=== PATIENT | female | born 1980 | race Caucasian/White ===

== ENCOUNTER 2018-06-21 08:58 | Inpatient (IN) | payer BC ==
[2018-06-21] MEDS ORDERED: Lactated Ringers 1,000 ML IV SCH (09:30)
[2018-06-21] MEDS ORDERED: Sodium Chloride 0.9% 10 ML Syringe FLUSH PRN (09:30)
[2018-06-21] MEDS ORDERED: Carboprost Tromethamine 250 MCG/1 ML Amp IM PRN (09:30)
[2018-06-21] MEDS ORDERED: Misoprostol 200 MCG Tab PO PRN (09:30)
[2018-06-21] MEDS ORDERED: Lidocaine 1% 50 ML MDV INJECT PRN (09:30)
[2018-06-21] MEDS ORDERED: Nalbuphine 10 MG/1 ML Vial IVPUSH PRN (09:30)
[2018-06-21] MEDS ORDERED: Methylergonovine 0.2 MG/1 ML Amp IM PRN (09:30)
[2018-06-21] MEDS ORDERED: Tranexamic Acid 1,000 MG in Sodium Chloride 0.9% 100 ML IV PRN (09:30)
[2018-06-21] MEDS ORDERED: Oxytocin/0.9 % Sodium Chloride 30 UNIT/500 ML BAG IV SCH ×2 (09:30→09:45)
[2018-06-21] MEDS ORDERED: Sodium Chloride 0.9% 2.5 ML Syringe FLUSH PRN (09:30)
[2018-06-21] MEDS ORDERED: Water For Irrigation,Sterile 1,000 ML Container IRR PRN (09:30)
[2018-06-21] MEDS ORDERED: Sodium Chloride 0.9% 10 ML SDV IV PRN (09:30)
[2018-06-21] MEDS ORDERED: Butorphanol 1 MG/ML SDV IVPUSH PRN (09:30)
[2018-06-21] MEDS ORDERED: Terbutaline 1 MG/ML SDV SUBCUT PRN (09:33)
[2018-06-21] MEDS ORDERED: Misoprostol 25 MCG (1/4 of 100 MCG) Tab VAG PRN ×2 (09:33)
[2018-06-21] MEDS ORDERED: Morphine 10 MG/ML Syringe IVPUSH ONE (17:01)
[2018-06-21] MEDS ORDERED: Promethazine 25 MG/ML SDV IM ONE (17:02)
[2018-06-21] MEDS ORDERED: fentaNYL 100 MCG/2 ML SDV ONE (19:55)
[2018-06-21] MEDS ORDERED: Ropivacaine HCl/PF 100 ML ONE (19:55)
[2018-06-21] MEDS ORDERED: Ropivacaine 0.2% 2 MG/ML 20 ML SDV ONE (19:55)
[2018-06-21] MEDS ORDERED: Lidocaine HCl/EPINEPHrine 5 ML IJ ONE (19:56)
--- NOTE | 2018-06-21 20:47 | PCM.PREANE ---
Preanesthetic Assessment - Anesthesia/Transfusion/Family Hx Anesthesia History: Prior Anesthesia Without Reaction Family History of Anesthesia Reaction: No Transfusion History: No Prior Transfusion(s) Intubation History: Unknown - Review of Systems General: No Symptoms Pulmonary: No Symptoms Cardiovascular: No Symptoms Gastrointestinal: No Symptoms Neurological: No Symptoms Other: Reports: None - Physical Assessment NPO Status Date: 06/21/18 NPO Status Time: 20:46 (Clear Liquids) Pulse: 98 O2 Sat by Pulse Oximetry: 99 Respiratory Rate: 24 Blood Pressure: 124/78 Height: 1.63 m Weight: 87.997 kg ASA Class: 2 Mental Status: Alert & Oriented x3 Airway Class: Mallampati = 2 Dentition: Reports: Normal Dentition ROM/Head Extension: Full Lungs: Clear to Auscultation Cardiovascular: Regular Rate - Lab Values: Laboratory Last Values WBC 12.97 K/uL (4.0-11.0) H 06/21/18 10:01 RBC 4.40 M/uL (4.30-5.90) 06/21/18 10:01 Hgb 13.1 g/dL (12.0-16.0) 06/21/18 10:01 Hct 38.5 % (36.0-46.0) 06/21/18 10:01 MCV 87.5 fL (80.0-98.0) 06/21/18 10:01 MCH 29.8 pg (27.0-32.0) 06/21/18 10:01 MCHC 34.0 g/dL (31.0-37.0) 06/21/18 10:01 RDW Std Deviation 43.3 fl (28.0-62.0) 06/21/18 10:01 RDW Coeff of Neto 14 % (11.0-15.0) 06/21/18 10:01 Plt Count 259 K/uL (150-400) 06/21/18 10:01 MPV 10.80 fL (7.40-12.00) 06/21/18 10:01 Nucleated RBC % 0.0 /100WBC 06/21/18 10:01 Nucleated RBCs # 0 K/uL 06/21/18 10:01 Blood Type O POSITIVE 06/21/18 10:01 Antibody Screen NEGATIVE 06/21/18 10:01 - Allergies Allergies/Adverse Reactions: Allergies Allergy/AdvReac Type Severity Reaction Status Date / Time Contrast dye Allergy Other Uncoded 04/02/18 14:09 - Blood Blood Available: No - Anesthesia Plan Pre-Op Medication Ordered: None - Acknowledgements Anesthesia Type Planned: Epidural Pt an Appropriate Candidate for the Planned Anesthesia: No Alternatives and Risks of Anesthesia Discussed w Pt/Guardian: No Pt/Guardian Understands and Agrees with Anesthesia Plan: No PreAnesthesia Questionnaire HEENT History: Reports: None Cardiovascular History: Reports: None Respiratory History: Reports: None Gastrointestinal History: Reports: Other (See Below) Other Gastrointestinal History: heartburn with Genitourinary History: Reports: None 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: Reports: , Other (See Below) Other OB/BYN History: bacterial vaginosis Musculoskeletal History: Reports: None Neurological History: Reports: Other (See Below) Other Neuro History: vaso-vagal response Psychiatric History: Reports: None Endocrine/Metabolic History: Reports: None Hematologic History: Reports: None Immunologic History: Reports: None Oncologic (Cancer) History: Reports: None Dermatologic History: Reports: None - Infectious Disease History Infectious Disease History: Reports: Chicken Pox, Human Papilloma Virus (HPV) - Past Surgical History Other HEENT Surgeries/Procedures: laser surgery to reduce turbinates GI Surgical History: Reports: None Female Surgical History: Reports: Other (See Below) Other Female Surgeries/Procedures: cervical cryrotherapy for abnormal cells - SUBSTANCE USE Smoking Status *Q: Never Smoker Second Hand Smoke Exposure: No Recreational Drug Use History: No - HOME MEDS Home Medications: Home Meds Cholecalciferol (Vitamin D3) [Vitamin D] 1 tab PO DAILY 04/02/18 [History] Magnesium 1 tab PO DAILY 04/02/18 [History] PNV #116/Iron Fumarate/FA/DHA [Expecta Combo Pack] 1 tab PO DAILY 04/02 [History] Zinc Gluconate [Zinc] 1 tab PO DAILY 04/02/18 [History] Acetaminophen [Tylenol Extra Strength] 1,000 mg PO ASDIRECTED PRN 06/21/18 [ History] Esomeprazole Magnesium [Nexium 24Hr] 1 tab PO DAILY 06/21/18 [History] - CURRENT (IN HOUSE) MEDS Current Meds: Current Medications Butorphanol Tartrate (Stadol) 1 mg IVPUSH Q1H PRN PRN Reason: Pain Last Admin: 06/21/18 16:09 Dose: 1 mg Carboprost Tromethamine (Hemabate Ds) 250 mcg IM ASDIRECTED PRN PRN Reason: Post Hemorrhage Lactated Ringer's (Ringers, Lactated) 1,000 mls @ 150 mls/hr IV ASDIRECTED ROB Last Admin: 06/21/18 15:35 Dose: 150 mls/hr Oxytocin/Sodium Chloride (Oxytocin 30 Unit/500 Ml-Ns) 30 unit in 500 mls @ 500 mls/hr IV TITRATE ROB Tranexamic Acid 1,000 mg/ (Sodium Chloride) 110 mls @ 660 mls/hr IV ONETIME PRN PRN Reason: Bleeding Oxytocin/Sodium Chloride (Oxytocin 30 Unit/500 Ml-Ns) 30 unit in 500 mls @ 2 mls/hr IV TITRATE [facility]; Protocol Lidocaine HCl (Xylocaine 1%) 50 ml INJECT ONETIME PRN PRN Reason: Laceration repair Methylergonovine Maleate (Methergine) 0.2 mg IM ASDIRECTED PRN PRN Reason: Post Hemorrhage Misoprostol (Cytotec) 200 mcg PO ONETIME PRN PRN Reason: Post Hemorrhage Misoprostol (Cytotec) 25 mcg VAG ONETIME PRN PRN Reason: Cervical Ripening Last Admin: 06/21/18 10:25 Dose: 25 mcg Misoprostol (Cytotec) 25 mcg VAG Q6H PRN PRN Reason: Cervical Ripening Nalbuphine HCl (Nubain) 10 mg IVPUSH Q1H PRN PRN Reason: Pain (severe 7-10) Sodium Chloride (Saline Flush) 10 ml FLUSH ASDIRECTED PRN PRN Reason: Keep Vein Open Sodium Chloride (Saline Flush) 2.5 ml FLUSH ASDIRECTED PRN PRN Reason: Keep Vein Open Sodium Chloride (Normal Saline) 10 ml IV ASDIRECTED PRN PRN Reason: IV Use Sterile Water (Sterile Water For Irrigation) 1,000 ml IRR ASDIRECTED PRN PRN Reason: delivery Terbutaline Sulfate (Brethine) 0.25 mg SUBCUT ASDIRECTED PRN PRN Reason: Tacysystole Discontinued Medications Fentanyl (Sublimaze) Confirm Administered Dose 100 mcg .ROUTE .STK-MED ONE Stop: 06/21/18 19:56 Ropivacaine (Naropin 0.2%) Confirm Administered Dose 100 mls @ as directed .ROUTE .STK-MED ONE Stop: 06/21/18 19:56 Lidocaine/Epinephrine (Lidocaine 1.5%-Epi 1:200,000) Confirm Administered Dose 5 ml IJ .STK-MED ONE Stop: 06/21/18 19:57 Morphine Sulfate (Morphine) 6 mg IVPUSH ONETIME ONE Stop: 06/21/18 17:02 Last Admin: 06/21/18 17:39 Dose: 6 mg Promethazine HCl (Phenergan) 25 mg IM ONETIME ONE Stop: 06/21/18 17:03 Last Admin: 06/21/18 17:45 Dose: 25 mg Ropivacaine (Naropin 0.2%) Confirm Administered Dose 20 ml .ROUTE .STK-MED ONE Stop: 06/21/18 19:56
--- NOTE | 2018-06-21 21:13 | PCM.PRNOTE ---
- Free Text/Narrative Note: Requested for Labor Epidural for analgesia. Term . Dilated ~5cm , contractions q2-3 minutes. Pain level "10". Chart reviewed, discussed risks, benefits, complications and expectations. Accepts, ? answered, wishes to proceed. 2001: Prepped, draped, skin local> 5ml 1% lidocaine at L4-L5 space. 2005: Epidural Space ID'd via YUNG with 1.5ml saline and 1ml air. 3ml saline bolus to confirm. 2006: Catheter to 8cm without issues. Negative aspiration. 2009: Test dose with 5ml Lidocaine 1.5% with 1:200K epi. Test negative. BP/HR/ FHT stable. No central or MAIL LIST PROCESSOR signs. Occlusive Drsg applied. Catheter secured. Bolus given slowly. Naropin 0.2% 8ml + 100mcg Fentanyl. Pain down to 5 from 2026: Epidural gtt started @ 8ml/hr, 4ml bolus q10 x4/hr. 20:30 Doing well. Pain level <3. No problems noted.
--- NOTE | 2018-06-21 21:16 | PCM.SN ---
- Free Text/Narrative Note: 21:10 Doing well. Stable. Pain well controlled. Complete.
--- NOTE | 2018-06-21 22:54 | PCM.DEL ---
L & D Note - General Info Date of Service: 06/21/18 Mother's Due Date: 06/13/18 - Delivery Note Cervical Ripening Method: Misoprostil Delivery Outcome: Livebirth Infant Delivery Method: Spontaneous Vaginal Delivery-Single Presentation: Right Occiput Anterior (ALINE) Nuchal Cord: None Anesthesia Type: Epidural Anesthetic: Lidocaine (Xylocaine) 1% Plain Amniotic Fluid Description: Clear Episiotomy Type: None Laceration: 1st Degree Suture type: Other (monocryl) Suture size: 3-0 Placenta: Intact Cord: 3 Vessels Estimated Blood Loss: 200 Resuscitation Needed: Yes : Suctioned, Bulb Syringe, Stimulated, Warmed Score 1 min: 8 Score 5 min: 8 Delivery Comments (Free Text/Narrative):: Live male delivered at 2157 weight 3040g , 8/8 - General Info Date of Service: 06/21/18 - Patient Data Vitals - Most Recent: Last Vital Signs Temp Pulse 98 06/21/18 20:47 Resp 24 H 06/21/18 20:47 BP 124/78 06/21/18 20:47 Pulse Ox 99 06/21/18 20:47 Weight - Most Recent: 87.997 kg Lab Results Last 24 Hours: Laboratory Results - last 24 hr 06/21/18 06/21/18 Range/Units 10:01 10:01 WBC 12.97 H (4.0-11.0) K/uL RBC 4.40 (4.30-5.90) M/uL Hgb 13.1 (12.0-16.0) g/dL Hct 38.5 (36.0-46.0) % MCV 87.5 (80.0-98.0) fL MCH 29.8 (27.0-32.0) pg MCHC 34.0 (31.0-37.0) g/dL RDW Std Deviation 43.3 (28.0-62.0) fl RDW Coeff of Neto 14 (11.0-15.0) % Plt Count 259 (150-400) K/uL MPV 10.80 (7.40-12.00) fL Nucleated RBC % 0.0 /100WBC Nucleated RBCs # 0 K/uL Blood Type O POSITIVE Antibody Screen NEGATIVE Med Orders - Current: Current Medications Butorphanol Tartrate (Stadol) 1 mg IVPUSH Q1H PRN PRN Reason: Pain Last Admin: 06/21/18 16:09 Dose: 1 mg Carboprost Tromethamine (Hemabate Ds) 250 mcg IM ASDIRECTED PRN PRN Reason: Post Hemorrhage Lactated Ringer's (Ringers, Lactated) 1,000 mls @ 150 mls/hr IV ASDIRECTED ROB Last Admin: 06/21/18 15:35 Dose: 150 mls/hr Oxytocin/Sodium Chloride (Oxytocin 30 Unit/500 Ml-Ns) 30 unit in 500 mls @ 500 mls/hr IV TITRATE ROB Tranexamic Acid 1,000 mg/ (Sodium Chloride) 110 mls @ 660 mls/hr IV ONETIME PRN PRN Reason: Bleeding Oxytocin/Sodium Chloride (Oxytocin 30 Unit/500 Ml-Ns) 30 unit in 500 mls @ 2 mls/hr IV TITRATE ROB; Protocol Lidocaine HCl (Xylocaine 1%) 50 ml INJECT ONETIME PRN PRN Reason: Laceration repair Methylergonovine Maleate (Methergine) 0.2 mg IM ASDIRECTED PRN PRN Reason: Post Hemorrhage Misoprostol (Cytotec) 200 mcg PO ONETIME PRN PRN Reason: Post Hemorrhage Misoprostol (Cytotec) 25 mcg VAG ONETIME PRN PRN Reason: Cervical Ripening Last Admin: 06/21/18 10:25 Dose: 25 mcg Misoprostol (Cytotec) 25 mcg VAG Q6H PRN PRN Reason: Cervical Ripening Nalbuphine HCl (Nubain) 10 mg IVPUSH Q1H PRN PRN Reason: Pain (severe 7-10) Sodium Chloride (Saline Flush) 10 ml FLUSH ASDIRECTED PRN PRN Reason: Keep Vein Open Sodium Chloride (Saline Flush) 2.5 ml FLUSH ASDIRECTED PRN PRN Reason: Keep Vein Open Sodium Chloride (Normal Saline) 10 ml IV ASDIRECTED PRN PRN Reason: IV Use Sterile Water (Sterile Water For Irrigation) 1,000 ml IRR ASDIRECTED PRN PRN Reason: delivery Terbutaline Sulfate (Brethine) 0.25 mg SUBCUT ASDIRECTED PRN PRN Reason: Tacysystole Discontinued Medications Fentanyl (Sublimaze) Confirm Administered Dose 100 mcg .ROUTE .STK-MED ONE Stop: 06/21/18 19:56 Ropivacaine (Naropin 0.2%) Confirm Administered Dose 100 mls @ as directed .ROUTE .STK-MED ONE Stop: 06/21/18 19:56 Lidocaine/Epinephrine (Lidocaine 1.5%-Epi 1:200,000) Confirm Administered Dose 5 ml IJ .STK-MED ONE Stop: 06/21/18 19:57 Morphine Sulfate (Morphine) 6 mg IVPUSH ONETIME ONE Stop: 06/21/18 17:02 Last Admin: 06/21/18 17:39 Dose: 6 mg Promethazine HCl (Phenergan) 25 mg IM ONETIME ONE Stop: 06/21/18 17:03 Last Admin: 06/21/18 17:45 Dose: 25 mg Ropivacaine (Naropin 0.2%) Confirm Administered Dose 20 ml .ROUTE .STK-MED ONE Stop: 06/21/18 19:56 - Problem List & Annotations (1) Vaginal delivery SNOMED Code(s): 556323224 Code(s): O80 - ENCOUNTER FOR FULL-TERM UNCOMPLICATED DELIVERY Status: Acute Current Visit: Yes - Problem List Review Problem List Initiated/Reviewed/Updated: Yes
[2018-06-21] MEDS ORDERED: Lanolin 100% Cream 7 GM Tube TOP PRN (22:55)
[2018-06-21] MEDS ORDERED: Bisacodyl 10 MG Supp RECTAL PRN (22:55)
[2018-06-21] MEDS ORDERED: oxyCODONE 5 MG Tab PO PRN (22:55)
[2018-06-21] MEDS ORDERED: Witch Hazel Medicated Pads 40/Jar TOP PRN (22:55)
[2018-06-21] MEDS ORDERED: Benzocaine/Menthol 20%-0.5% Spray 78 GM Cannister TOP PRN (22:55)
[2018-06-21] MEDS ORDERED: Acetaminophen 500 MG Tab PO PRN (22:55)
[2018-06-21] MEDS ORDERED: Ibuprofen 400 MG Tab PO PRN (22:55)
--- NOTE | 2018-06-22 04:33 | PCM48HPAN ---
Post Anesthesia Note - EVALUATION WITHIN 48HRS OF ANESTHETIC Vital Signs in Normal Range: Yes Patient Participated in Evaluation: Yes Respiratory Function Stable: Yes Airway Patent: Yes Cardiovascular Function Stable: Yes Hydration Status Stable: Yes Pain Control Satisfactory: Yes Nausea and Vomiting Control Satisfactory: Yes Mental Status Recovered: Yes Pulse Rate: 98 SaO2: 98 Resp Rate: 24 Blood Pressure: 124/78 - COMMENTS/OBSERVATIONS Free Text/Narrative:: Delivered without incident. Doing well. no problems noted.
[2018-06-22] MEDS: Ibuprofen 800 MG Tab PO PRN ×2 (08:05→14:20)
[2018-06-22] MEDS: Docusate Sodium 100 MG Cap PO PRN ×2 (08:05→20:41)
[2018-06-22] MEDS: Acetaminophen 500 MG Tab PO PRN (11:35)
--- NOTE | 2018-06-22 12:11 | PCM.PNPP ---
- General Info Date of Service: 06/22/18 Subjective Update: 37 yo P1 s/p PPD 1 , stable Functional Status: Reports: Pain Controlled, Tolerating Diet, Ambulating, Urinating - Review of Systems General: Reports: No Symptoms HEENT: Reports: No Symptoms Pulmonary: Reports: No Symptoms Cardiovascular: Reports: No Symptoms Gastrointestinal: Reports: No Symptoms Genitourinary: Reports: No Symptoms Musculoskeletal: Reports: No Symptoms Skin: Reports: No Symptoms Neurological: Reports: No Symptoms Psychiatric: Reports: No Symptoms - General Info Date of Service: 06/22/18 - Patient Data Vital Signs - Most Recent: Last Vital Signs Temp 36.7 C 06/22/18 08:00 Pulse 74 06/22/18 08:00 Resp 20 06/22/18 08:00 BP 116/59 L 06/22/18 08:00 Pulse Ox 97 06/22/18 08:00 Weight - Most Recent: 87.997 kg Lab Results - Last 24 Hours: Laboratory Results - last 24 hr 06/22/18 Range/Units 07:08 Hgb 11.8 L (12.0-16.0) g/dL Hct 34.5 L (36.0-46.0) % Med Orders - Current: Current Medications Acetaminophen (Tylenol Extra Strength) 500 mg PO Q4H PRN PRN Reason: Pain Acetaminophen (Tylenol Extra Strength) 1,000 mg PO Q4H PRN PRN Reason: Pain Last Admin: 06/22/18 11:35 Dose: 1,000 mg Benzocaine/Menthol (Dermoplast Pain Relief 20%-0.5% [place]) 78 gm TOP ASDIRECTED PRN PRN Reason: Perineal Comfort Measure Last Admin: 06/22/18 08:08 Dose: 1 canister Bisacodyl (Dulcolax) 10 mg RECTAL ONETIME PRN PRN Reason: Constipation Carboprost Tromethamine (Hemabate Ds) 250 mcg IM ASDIRECTED PRN PRN Reason: Post Hemorrhage Docusate Sodium (Colace) 100 mg PO BID PRN PRN Reason: Constipation Last Admin: 06/22/18 08:05 Dose: 100 mg Emollient Ointment (Lansinoh Hpa) 0 gm TOP ASDIRECTED PRN PRN Reason: Sore Nipples Lactated Ringer's (Ringers, Lactated) 1,000 mls @ 150 mls/hr IV ASDIRECTED ROB Last Admin: 06/21/18 15:35 Dose: 150 mls/hr Oxytocin/Sodium Chloride (Oxytocin 30 Unit/500 Ml-Ns) 30 unit in 500 mls @ 500 mls/hr IV TITRATE [facility] Tranexamic Acid 1,000 mg/ (Sodium Chloride) 110 mls @ 660 mls/hr IV ONETIME PRN PRN Reason: Bleeding Oxytocin/Sodium Chloride (Oxytocin 30 Unit/500 Ml-Ns) 30 unit in 500 mls @ 2 mls/hr IV TITRATE [facility]; Protocol Ibuprofen (Motrin) 400 mg PO Q4H PRN PRN Reason: Pain Ibuprofen (Motrin) 800 mg PO Q6H PRN PRN Reason: Pain Last Admin: 06/22/18 08:05 Dose: 800 mg Lidocaine HCl (Xylocaine 1%) 50 ml INJECT ONETIME PRN PRN Reason: Laceration repair Methylergonovine Maleate (Methergine) 0.2 mg IM ASDIRECTED PRN PRN Reason: Post Hemorrhage Misoprostol (Cytotec) 200 mcg PO ONETIME PRN PRN Reason: Post Hemorrhage Misoprostol (Cytotec) 25 mcg VAG Q6H PRN PRN Reason: Cervical Ripening Oxycodone HCl (Oxycodone) 5 mg PO Q2H PRN PRN Reason: Pain Sodium Chloride (Saline Flush) 10 ml FLUSH ASDIRECTED PRN PRN Reason: Keep Vein Open Sodium Chloride (Saline Flush) 2.5 ml FLUSH ASDIRECTED PRN PRN Reason: Keep Vein Open Sodium Chloride (Normal Saline) 10 ml IV ASDIRECTED PRN PRN Reason: IV Use Sterile Water (Sterile Water For Irrigation) 1,000 ml IRR ASDIRECTED PRN PRN Reason: delivery Terbutaline Sulfate (Brethine) 0.25 mg SUBCUT ASDIRECTED PRN PRN Reason: Tacysystole [place] (Tucks) 1 pad TOP ASDIRECTED PRN PRN Reason: comfort care Discontinued Medications Butorphanol Tartrate (Stadol) 1 mg IVPUSH Q1H PRN PRN Reason: Pain Last Admin: 06/21/18 16:09 Dose: 1 mg Fentanyl (Sublimaze) Confirm Administered Dose 100 mcg .ROUTE .STK-MED ONE Stop: 06/21/18 19:56 Ropivacaine (Naropin 0.2%) Confirm Administered Dose 100 mls @ as directed .ROUTE .STK-MED ONE Stop: 06/21/18 19:56 Lidocaine/Epinephrine (Lidocaine 1.5%-Epi 1:200,000) Confirm Administered Dose 5 ml IJ .STK-MED ONE Stop: 06/21/18 19:57 Misoprostol (Cytotec) 25 mcg VAG ONETIME PRN PRN Reason: Cervical Ripening Last Admin: 06/21/18 10:25 Dose: 25 mcg Morphine Sulfate (Morphine) 6 mg IVPUSH ONETIME ONE Stop: 06/21/18 17:02 Last Admin: 06/21/18 17:39 Dose: 6 mg Nalbuphine HCl (Nubain) 10 mg IVPUSH Q1H PRN PRN Reason: Pain (severe 7-10) Promethazine HCl (Phenergan) 25 mg IM ONETIME ONE Stop: 06/21/18 17:03 Last Admin: 06/21/18 17:45 Dose: 25 mg Ropivacaine (Naropin 0.2%) Confirm Administered Dose 20 ml .ROUTE .STK-MED ONE Stop: 06/21/18 19:56 - Infant Interaction Support Person: Significant Other - Recovery Exam Fundal Tone: Firm Fundal Level: At Umbilicus Fundal Placement: Midline Lochia Amount: Small Lochia Color: Rubra/Red Perineum Description: Intact, Minimal Bruising/Swelling Episiotomy/Laceration: None Bladder Status: Voiding Urinary Elimination: Voided - Exam General: Alert HEENT: Pupils Equal Neck: Supple Lungs: Clear to Auscultation Cardiovascular: Regular Rate, Regular Rhythm GI/Abdominal Exam: Normal Bowel Sounds Extremities: Normal Inspection Psy/Mental Status: Alert - Problem List & Annotations (1) Vaginal delivery SNOMED Code(s): 864482201 Code(s): O80 - ENCOUNTER FOR FULL-TERM UNCOMPLICATED DELIVERY Status: Acute Current Visit: Yes - Problem List Review Problem List Initiated/Reviewed/Updated: Yes - My Orders Last 24 Hours: My Active Orders 06/21/18 22:55 Patient Status [ADT] Routine May Shower [RC] ASDIRECTED Up ad Cassidy [RC] ASDIRECTED Acetaminophen [Tylenol Extra Strength] 1,000 mg PO Q4H PRN Acetaminophen [Tylenol Extra Strength] 500 mg PO Q4H PRN Benzocaine/Menthol [Dermoplast Pain Relief 20%-0.5% [place]] 78 gm TOP ASDIRECTED PRN Bisacodyl [Dulcolax] 10 mg RECTAL ONETIME PRN Docusate Sodium [Colace] 100 mg PO BID PRN Ibuprofen [Motrin] 400 mg PO Q4H PRN Ibuprofen [Motrin] 800 mg PO Q6H PRN Lanolin [Lansinoh HPA] See Dose Instructions TOP ASDIRECTED PRN [place] [Tucks] 1 pad TOP ASDIRECTED PRN oxyCODONE 5 mg PO Q2H PRN Assess Lochia [WOMSER] Per Unit Routine Assess Uterine Involution [WOMSER] Per Unit Routine Peripheral IV Discontinue [OM.PC] Routine Resuscitation Status Routine - Assessment Assessment:: 37 yo P2 s/p PPD 1 , stable , on oxygen via nasal cannula, she is pumping - Plan Plan:: Routine Discharge home tomorrow
--- NOTE | 2018-06-22 13:16 | OR ---
SURGEON: LUZ TONEY DATE OF PROCEDURE:06/22/2018 PREOPERATIVE DIAGNOSIS: This 37-year-old 1, para 0, at 41 weeks 0 days, admitted for induction of labor for borderline oligohydramnios and HEATHER was 6. POSTOPERATIVE DIAGNOSES: This 37-year-old 1, para 0, at 41 weeks 0 days, admitted for induction of labor for borderline oligohydramnios and HEATHER was 6. PROCEDURES: Normal spontaneous vaginal delivery and repair of first degree vaginal laceration. ESTIMATED BLOOD LOSS: 200. IV FLUID: Pitocin running. FINDINGS: A live male delivered at 2157 hours. score was 8 and 8. Weight is 3040 g. There was some suctioning of the baby afterwards. BRIEF HISTORY: She is G1, P0, 41 weeks 0 days came for postdates surveillance. She was found to have border line oligohydramnios. As a result, she was counseled for induction of labor. Induction of labor was started with Cytotec. The patient made change on her own after receiving about 2 doses of Cytotec and she changed from a closed cervix to 4 cm dilated, and she became fully dilated and she was encouraged to push. PROCEDURE: With good pushing effort, the patient delivered head in the ALINE position subsequently by the anterior and posterior shoulder and the body of the was delivered. The infant was placed on the maternal abdomen. Then delayed cord clamping was observed. The cord was clamped and cut, the placenta was then delivered via controlled cord traction. The perineum was inspected and noted to have a first degree laceration, which was repaired with 3-0 Monocryl interlocking in layers. All instrument and pad counts were correct x2. The patient tolerated the procedure and was left in Labor and Delivery suite in stable condition. ANIBAL / JAIMEE /[id number] RONALD
[2018-06-23] MEDS: Ibuprofen 800 MG Tab PO PRN (00:29)
[2018-06-23] MEDS: Acetaminophen 500 MG Tab PO PRN (06:08)
--- NOTE | 2018-06-23 07:22 | PCM.PNPP ---
- General Info Date of Service: 06/23/18 Subjective Update: 37 yo P1 s/p PPD 2 , stable Functional Status: Reports: Pain Controlled, Tolerating Diet, Ambulating, Urinating - Review of Systems General: Reports: No Symptoms HEENT: Reports: No Symptoms Pulmonary: Reports: No Symptoms Cardiovascular: Reports: No Symptoms Gastrointestinal: Reports: No Symptoms Genitourinary: Reports: No Symptoms Musculoskeletal: Reports: No Symptoms Skin: Reports: No Symptoms Neurological: Reports: No Symptoms Psychiatric: Reports: No Symptoms - General Info Date of Service: 06/23/18 - Patient Data Vital Signs - Most Recent: Last Vital Signs Temp 36.6 C 06/23/18 04:28 Pulse 66 06/23/18 04:28 Resp 17 06/23/18 04:28 BP 101/64 06/23/18 04:28 Pulse Ox 98 06/23/18 04:28 Weight - Most Recent: 87.997 kg Lab Results - Last 24 Hours: Laboratory Results - last 24 hr 06/22/18 Range/Units 07:08 Hgb 11.8 L (12.0-16.0) g/dL Hct 34.5 L (36.0-46.0) % Med Orders - Current: Current Medications Acetaminophen (Tylenol Extra Strength) 500 mg PO Q4H PRN PRN Reason: Pain Acetaminophen (Tylenol Extra Strength) 1,000 mg PO Q4H PRN PRN Reason: Pain Last Admin: 06/23/18 06:08 Dose: 1,000 mg Benzocaine/Menthol (Dermoplast Pain Relief 20%-0.5% [place]) 78 gm TOP ASDIRECTED PRN PRN Reason: Perineal Comfort Measure Last Admin: 06/22/18 08:08 Dose: 1 canister Bisacodyl (Dulcolax) 10 mg RECTAL ONETIME PRN PRN Reason: Constipation Carboprost Tromethamine (Hemabate Ds) 250 mcg IM ASDIRECTED PRN PRN Reason: Post Hemorrhage Docusate Sodium (Colace) 100 mg PO BID PRN PRN Reason: Constipation Last Admin: 06/22/18 20:41 Dose: 100 mg Emollient Ointment (Lansinoh Hpa) 0 gm TOP ASDIRECTED PRN PRN Reason: Sore Nipples Lactated Ringer's (Ringers, Lactated) 1,000 mls @ 150 mls/hr IV ASDIRECTED ROB Last Admin: 06/21/18 15:35 Dose: 150 mls/hr Oxytocin/Sodium Chloride (Oxytocin 30 Unit/500 Ml-Ns) 30 unit in 500 mls @ 500 mls/hr IV TITRATE [facility] Tranexamic Acid 1,000 mg/ (Sodium Chloride) 110 mls @ 660 mls/hr IV ONETIME PRN PRN Reason: Bleeding Oxytocin/Sodium Chloride (Oxytocin 30 Unit/500 Ml-Ns) 30 unit in 500 mls @ 2 mls/hr IV TITRATE [facility]; Protocol Ibuprofen (Motrin) 400 mg PO Q4H PRN PRN Reason: Pain Ibuprofen (Motrin) 800 mg PO Q6H PRN PRN Reason: Pain Last Admin: 06/23/18 00:29 Dose: 800 mg Lidocaine HCl (Xylocaine 1%) 50 ml INJECT ONETIME PRN PRN Reason: Laceration repair Methylergonovine Maleate (Methergine) 0.2 mg IM ASDIRECTED PRN PRN Reason: Post Hemorrhage Misoprostol (Cytotec) 200 mcg PO ONETIME PRN PRN Reason: Post Hemorrhage Misoprostol (Cytotec) 25 mcg VAG Q6H PRN PRN Reason: Cervical Ripening Oxycodone HCl (Oxycodone) 5 mg PO Q2H PRN PRN Reason: Pain Sodium Chloride (Saline Flush) 10 ml FLUSH ASDIRECTED PRN PRN Reason: Keep Vein Open Sodium Chloride (Saline Flush) 2.5 ml FLUSH ASDIRECTED PRN PRN Reason: Keep Vein Open Sodium Chloride (Normal Saline) 10 ml IV ASDIRECTED PRN PRN Reason: IV Use Sterile Water (Sterile Water For Irrigation) 1,000 ml IRR ASDIRECTED PRN PRN Reason: delivery Terbutaline Sulfate (Brethine) 0.25 mg SUBCUT ASDIRECTED PRN PRN Reason: Tacysystole [place] (Tucks) 1 pad TOP ASDIRECTED PRN PRN Reason: comfort care Discontinued Medications Butorphanol Tartrate (Stadol) 1 mg IVPUSH Q1H PRN PRN Reason: Pain Last Admin: 06/21/18 16:09 Dose: 1 mg Fentanyl (Sublimaze) Confirm Administered Dose 100 mcg .ROUTE .STK-MED ONE Stop: 06/21/18 19:56 Last Admin: 06/22/18 23:22 Dose: Not Given Ropivacaine (Naropin 0.2%) Confirm Administered Dose 100 mls @ as directed .ROUTE .STK-MED ONE Stop: 06/21/18 19:56 Last Admin: 06/22/18 23:22 Dose: Not Given Lidocaine/Epinephrine (Lidocaine 1.5%-Epi 1:200,000) Confirm Administered Dose 5 ml IJ .STK-MED ONE Stop: 06/21/18 19:57 Last Admin: 06/22/18 23:22 Dose: Not Given Misoprostol (Cytotec) 25 mcg VAG ONETIME PRN PRN Reason: Cervical Ripening Last Admin: 06/21/18 10:25 Dose: 25 mcg Morphine Sulfate (Morphine) 6 mg IVPUSH ONETIME ONE Stop: 06/21/18 17:02 Last Admin: 06/21/18 17:39 Dose: 6 mg Nalbuphine HCl (Nubain) 10 mg IVPUSH Q1H PRN PRN Reason: Pain (severe 7-10) Promethazine HCl (Phenergan) 25 mg IM ONETIME ONE Stop: 06/21/18 17:03 Last Admin: 06/21/18 17:45 Dose: 25 mg Ropivacaine (Naropin 0.2%) Confirm Administered Dose 20 ml .ROUTE .STK-MED ONE Stop: 06/21/18 19:56 Last Admin: 06/22/18 23:21 Dose: Not Given - Infant Interaction Support Person: Significant Other - Recovery Exam Fundal Tone: Firm Fundal Level: 1 Fingerbreadths Below Umbilicus Fundal Placement: Midline Lochia Amount: Scant Lochia Color: Rubra/Red Perineum Description: Edematous Episiotomy/Laceration: Approximated Bladder Status: Voiding Urinary Elimination: Voided - Exam General: Alert HEENT: Pupils Equal Neck: Supple Lungs: Clear to Auscultation Cardiovascular: Regular Rate GI/Abdominal Exam: Normal Bowel Sounds Extremities: Normal Inspection Neurological: No New Focal Deficit - Problem List & Annotations (1) Vaginal delivery SNOMED Code(s): 664886734 Code(s): O80 - ENCOUNTER FOR FULL-TERM UNCOMPLICATED DELIVERY Status: Acute Current Visit: Yes - Problem List Review Problem List Initiated/Reviewed/Updated: Yes - Assessment Assessment:: 37 yo P2 s/p PPD 2 , stable , stable - Plan Plan:: Discharge home tomorrow
== END 2018-06-23 11:00 | disposition home or self-care (01) | DRG 560 ==
LOC: MW.OBCHECK 08:58 → MW.OB 16:19 → OBSVTOIN 19:57 → MW.OB 19:57
PROVIDERS: ADMIT Obstetrics & Gynecology; ATTEND Obstetrics & Gynecology
PROC: 3E0P7VZ Introduction of Hormone into Female Reproductive, Via Natural or Artificial Opening (ICD-10-PCS; principal; 2018-06-21)
PROC: 10E0XZZ Delivery of Products of Conception, External Approach (ICD-10-PCS; principal; 2018-06-21)
PROC: 0HQ9XZZ Repair Perineum Skin, External Approach (ICD-10-PCS; principal; 2018-06-21)
PROC: 3E0R3BZ Introduction of Anesthetic Agent into Spinal Canal, Percutaneous Approach (ICD-10-PCS; 2018-06-21)
PROC: 00HU33Z Insertion of Infusion Device into Spinal Canal, Percutaneous Approach (ICD-10-PCS; 2018-06-21)
DX: O48.0 Post-term pregnancy (principal); Z3A.41 41 weeks gestation of pregnancy; O41.03X0 Oligohydramnios, third trimester, not applicable or unspecified; Z37.0 Single live birth; O70.0 First degree perineal laceration during delivery; Z91.041 Radiographic dye allergy status; O98.32 Other infections with a predominantly sexual mode of transmission complicating childbirth; A63.0 Anogenital (venereal) warts
CPT/HCPCS: 36415; 59025; 59409; 85014; 85018; 85027; 86850; 86900; 86901; A9270-GY; J0595; J2270; J2550; J7120

== ENCOUNTER 2018-10-24 05:22 | Day surgery (SDC) | payer BC ==
[2018-10-24] MEDS ORDERED: Ondansetron 4 MG/2 ML SDV IVPUSH ONE (05:37)
[2018-10-24] MEDS ORDERED: Ketorolac 30 MG/ML SDV IVPUSH ONE (05:38)
[2018-10-24] MEDS ORDERED: Sodium Chloride 0.9% 1,000 ML IV ONE (05:39)
[2018-10-24] MEDS ORDERED: Ondansetron 4 MG/2 ML SDV ONE ×2 (05:40→09:56)
[2018-10-24] MEDS ORDERED: Ketorolac 30 MG/ML SDV ONE (05:40)
[2018-10-24] MEDS ORDERED: HYDROmorphone 1 MG/ML Syringe IVPUSH ONE ×2 (05:43→07:30)
[2018-10-24 05:59] LABS: CHLORIDE,CL 105 mmol/L (98-107); SODIUM,NA 141 mmol/L (136-145)
--- NOTE | 2018-10-24 06:45 | CT ---
INDICATION: Left flank pain TECHNIQUE: CT abdomen and pelvis without contrast. COMPARISON: None. FINDINGS: Lower chest: Unremarkable. Liver: Normal in size and attenuation. No masses. Gallbladder and bile ducts: No stones or inflammation. No biliary dilatation. Pancreas: Unremarkable. No mass or inflammation. Spleen: Normal in size. No masses. Adrenal glands: Normal in size. No nodules. Kidneys: A 6 mm stone is present in the proximal left ureter causing moderate hydronephrosis. Several tiny stones remain in each kidney. GI tract: Unremarkable. Normal in caliber. No sign of mass or inflammation. Normal appendix. Vasculature: Unremarkable. Lymph nodes: No lymphadenopathy. Abdominal wall/Omentum/Peritoneum: Unremarkable. No sign of mass or infiltration. No free air or significant free fluid. Pelvis: Unremarkable. No pelvic masses. IUD appears in satisfactory position. Bones: Unremarkable for age. IMPRESSION: 6 mm stone in the proximal left ureter causing moderate hydronephrosis. There is bilateral nephrolithiasis. Please note that all CT scans at this facility use dose modulation, iterative reconstruction, and/or weight-based dosing when appropriate to reduce radiation dose to as low as reasonably achievable. Dictated by Brandon Hawkins MD @ Oct 24 2018 6:41AM Signed by Dr. Brandon Hawkins @ Oct 24 2018 6:45AM
--- NOTE | 2018-10-24 07:04 | EDM.PDOC ---
ED HPI GENERAL MEDICAL PROBLEM - General Chief Complaint: Flank Pain Stated Complaint: LOWER LEFT BACK PAIN Time Seen by Provider: 10/24/18 07:16 - History of Present Illness INITIAL COMMENTS - FREE TEXT/NARRATIVE: HISTORY AND PHYSICAL: History of present illness: Patient 38-year-old white female presents with concern of acute left flank pain with associated nausea denies fever chills denies trauma denies history of urolithiasis Review of systems: As per history of present illness and below otherwise all systems reviewed and negative. Past medical history: As per history of present illness and as reviewed below otherwise noncontributory. Surgical history: As per history of present illness and as reviewed below otherwise noncontributory. Social history: No reported history of drug or alcohol abuse. Family history: As per history of present illness and as reviewed below otherwise noncontributory. Physical exam: HEENT: Atraumatic, normocephalic, pupils reactive, negative for conjunctival pallor or scleral icterus, mucous membranes moist, throat clear, neck supple, nontender, trachea midline. Lungs: Clear to auscultation, breath sounds equal bilaterally, chest nontender. Heart: S1S2, regular, negative for clicks, rubs, or JVD. Abdomen: Soft, nondistended, nontender. Negative for masses or hepatosplenomegaly. Left side costovertebral tenderness. Pelvis: Stable nontender. Genitourinary: Deferred. Rectal: Deferred. Extremities: Atraumatic, negative for cords or calf pain. Neurovascular unremarkable. Neuro: Awake, alert, oriented. Cranial nerves II through XII unremarkable. Cerebellum unremarkable. Motor and sensory unremarkable throughout. Exam nonfocal. Diagnostics: CBC CMP UA hCG CT abdomen and pelvis Therapeutics: Saline 1 L bolus Zofran 4 mg IV Toradol 30 mg IV Dilaudid 1 mg IV Flomax 0.4 mg by mouth Impression: #1 acute left flank pain Definitive disposition and diagnosis as appropriate pending reevaluation and review of above. right flank Pain Score (Numeric/FACES): 1 - Related Data Allergies Allergy/AdvReac Type Severity Reaction Status Date / Time Contrast dye Allergy Anaphylactic Uncoded 10/24/18 05:33 Shock Home Meds: Home Meds PNV #116/Iron Fumarate/FA/DHA [Expecta Combo Pack] 1 tab PO DAILY 04/02 [History] Past Medical History HEENT History: Reports: Impaired Vision, Other (See Below) Other HEENT History: wears glasses Cardiovascular History: Reports: None Respiratory History: Reports: None Gastrointestinal History: Reports: Other (See Below) Other Gastrointestinal History: heartburn with Genitourinary History: Reports: None [employer] OPERATOR History: Reports: , Other (See Below) Other [employer] 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 Musculoskeletal History: Reports: None Neurological History: Reports: Other (See Below) Other Neuro History: vaso-vagal response Psychiatric History: Reports: None Endocrine/Metabolic History: Reports: None Hematologic History: Reports: None Immunologic History: Reports: None Oncologic (Cancer) History: Reports: None Dermatologic History: Reports: None - Infectious Disease History Infectious Disease History: Reports: Chicken Pox, Human Papilloma Virus (HPV) - Past Surgical History HEENT Surgical History: Reports: Other (See Below) Other HEENT Surgeries/Procedures: laser surgery to reduce turbinates GI Surgical History: Reports: None Female Surgical History: Reports: Other (See Below) Other Female Surgeries/Procedures: cervical cryrotherapy for abnormal cells Neurological Surgical History: Reports: None Musculoskeletal Surgical History: Reports: None Social & Family History - Family History Family Medical History: Noncontributory HEENT: Reports: Impaired Vision Cardiac: Reports: None Respiratory: Reports: None GI: Reports: Pancreatitis : Reports: None OBGYN: Reports: Musculoskeletal: Reports: None Neurological: Reports: Neuropathy, Diabetic Psychiatric: Reports: None Endocrine/Metabolic: Reports: Diabetes, Type I, Diabetes, type II, Hyperthyroidism Hematologic: Reports: None Immunologic: Reports: None Dermatologic: Reports: None Oncologic: Reports: None - Tobacco Use Smoking Status *Q: Never Smoker Second Hand Smoke Exposure: No - Caffeine Use Caffeine Use: Reports: None - Recreational Drug Use Recreational Drug Use: No ED ROS GENERAL - Review of Systems Review Of Systems: ROS reveals no pertinent complaints other than HPI. ED EXAM, GENERAL - Physical Exam Exam: See Below (See dictation) Course - Vital Signs Last Recorded V/S: Last Vital Signs Temp 35.8 C 10/24/18 05:29 Pulse 55 L 10/24/18 06:43 Resp 18 10/24/18 06:43 BP 124/78 10/24/18 06:43 Pulse Ox 95 10/24/18 06:43 - Orders/Labs/Meds Orders: Active Orders 24 hr Category Date Time Status EKG 12 Lead [EKG Documentation Completion] [RC] STAT Care 10/24/18 06:30 Inactive cefTRIAXone [Rocephin in Dextrose,Iso-Osm 1 GM/50 ML] 1 Med 10/24/18 07:13 Active gm Premix Bag 1 bag IV ONETIME Medication Orders Ceftriaxone Sodium/Dextrose 1 (gm/ Premix) 50 mls @ 100 mls/hr IV ONETIME ONE Stop: 10/24/18 07:42 Labs: Laboratory Tests 10/24/18 10/24/18 10/24/18 Range/Units 04:25 04:25 04:25 WBC 8.22 (4.0-11.0) K/uL RBC 5.10 (4.30-5.90) M/uL Hgb 14.9 (12.0-16.0) g/dL Hct 44.9 (36.0-46.0) % MCV 88.0 (80.0-98.0) fL MCH 29.2 (27.0-32.0) pg MCHC 33.2 (31.0-37.0) g/dL RDW Std Deviation 43.9 (28.0-62.0) fl RDW Coeff of Neto 14 (11.0-15.0) % Plt Count 291 (150-400) K/uL MPV 11.20 (7.40-12.00) fL Neut % (Auto) 49.1 (48.0-80.0) % Lymph % (Auto) 38.8 (16.0-40.0) % [place] % (Auto) 9.1 (0.0-15.0) % Eos % (Auto) 2.8 (0.0-7.0) % Baso % (Auto) 0.2 (0.0-1.5) % Neut # (Auto) 4.0 (1.4-5.7) K/uL Lymph # (Auto) 3.2 H (0.6-2.4) K/uL [place] # (Auto) 0.8 (0.0-0.8) K/uL Eos # (Auto) 0.2 (0.0-0.7) K/uL Baso # (Auto) 0.0 (0.0-0.1) K/uL Nucleated RBC % 0.0 /100WBC Nucleated RBCs # 0 K/uL Sodium 141 (136-145) mmol/L Potassium 4.0 (3.5-5.1) mmol/L Chloride 105 (98-107) mmol/L Carbon Dioxide 25.2 (21.0-32.0) mmol/L BUN 12 (7.0-18.0) mg/dL Creatinine 0.8 (0.6-1.0) mg/dL Est Cr Clr Drug Dosing 83.95 mL/min Estimated GFR (MDRD) > 60.0 ml/min Glucose 92 (74-106) mg/dL Calcium 8.8 (8.5-10.1) mg/dL Total Bilirubin 0.6 (0.2-1.0) mg/dL AST 62 H (15-37) IU/L ALT 119 H (14-63) IU/L Alkaline Phosphatase 149 H (46-116) U/L Total Protein 7.7 (6.4-8.2) g/dL Albumin 3.8 (3.4-5.0) g/dL Globulin 3.9 (2.6-4.0) g/dL Albumin/Globulin Ratio 1.0 (0.9-1.6) Lipase 203 (73-393) U/L HCG, Qual NEGATIVE (NEG) Urine Color Urine Appearance Urine pH (5.0-8.0) Ur Specific [place] (1.001-1.035) Urine Protein (NEGATIVE) mg/dL Urine Glucose (UA) (NEGATIVE) mg/dL Urine Ketones (NEGATIVE) mg/dL Urine Occult Blood (NEGATIVE) Urine Nitrite (NEGATIVE) Urine Bilirubin (NEGATIVE) Urine Urobilinogen (<2.0) EU/dL Ur Leukocyte Esterase (NEGATIVE) Urine RBC (0-2/HPF) Urine WBC (0-5/HPF) Ur Epithelial Cells (NONE-FEW) Urine Bacteria (NEGATIVE) Urine Mucus (NONE-MOD) 10/24/18 Range/Units 06:10 WBC (4.0-11.0) K/uL RBC (4.30-5.90) M/uL Hgb (12.0-16.0) g/dL Hct (36.0-46.0) % MCV (80.0-98.0) fL MCH (27.0-32.0) pg MCHC (31.0-37.0) g/dL RDW Std Deviation (28.0-62.0) fl RDW Coeff of Neto (11.0-15.0) % Plt Count (150-400) K/uL MPV (7.40-12.00) fL Neut % (Auto) (48.0-80.0) % Lymph % (Auto) (16.0-40.0) % [place] % (Auto) (0.0-15.0) % Eos % (Auto) (0.0-7.0) % Baso % (Auto) (0.0-1.5) % Neut # (Auto) (1.4-5.7) K/uL Lymph # (Auto) (0.6-2.4) K/uL [place] # (Auto) (0.0-0.8) K/uL Eos # (Auto) (0.0-0.7) K/uL Baso # (Auto) (0.0-0.1) K/uL Nucleated RBC % /100WBC Nucleated RBCs # K/uL Sodium (136-145) mmol/L Potassium (3.5-5.1) mmol/L Chloride (98-107) mmol/L Carbon Dioxide (21.0-32.0) mmol/L BUN (7.0-18.0) mg/dL Creatinine (0.6-1.0) mg/dL Est Cr Clr Drug Dosing mL/min Estimated GFR (MDRD) ml/min Glucose (74-106) mg/dL Calcium (8.5-10.1) mg/dL Total Bilirubin (0.2-1.0) mg/dL AST (15-37) IU/L ALT (14-63) IU/L Alkaline Phosphatase (46-116) U/L Total Protein (6.4-8.2) g/dL Albumin (3.4-5.0) g/dL Globulin (2.6-4.0) g/dL Albumin/Globulin Ratio (0.9-1.6) Lipase (73-393) U/L HCG, Qual (NEG) Urine Color YELLOW Urine Appearance CLOUDY Urine pH 6.0 (5.0-8.0) Ur Specific [place] 1.025 (1.001-1.035) Urine Protein NEGATIVE (NEGATIVE) mg/dL Urine Glucose (UA) NEGATIVE (NEGATIVE) mg/dL Urine Ketones NEGATIVE (NEGATIVE) mg/dL Urine Occult Blood LARGE H (NEGATIVE) Urine Nitrite NEGATIVE (NEGATIVE) Urine Bilirubin NEGATIVE (NEGATIVE) Urine Urobilinogen 0.2 (<2.0) EU/dL Ur Leukocyte Esterase SMALL H (NEGATIVE) Urine RBC 40-50 (0-2/HPF) Urine WBC 4-6 (0-5/HPF) Ur Epithelial Cells FEW (NONE-FEW) Urine Bacteria 1+ H (NEGATIVE) Urine Mucus LIGHT (NONE-MOD) Meds: Medications Generic Name Dose Route Start Last Admin Trade Name Freq PRN Reason Stop Dose Admin Ceftriaxone Sodium/Dextrose 1 50 mls @ 100 mls/hr 10/24/18 07:13 gm/ Premix IV 10/24/18 07:42 ONETIME ONE Discontinued Medications Generic Name Dose Route Start Last Admin Trade Name Freq PRN Reason Stop Dose Admin Hydromorphone HCl 1 mg 10/24/18 05:43 10/24/18 06:18 Dilaudid IVPUSH 10/24/18 05:44 1 mg ONETIME ONE Administration Sodium Chloride 1,000 mls @ 999 mls/hr 10/24/18 05:39 10/24/18 05:41 Normal Saline IV 10/24/18 06:39 999 mls/hr .Bolus ONE Administration Ketorolac Tromethamine 30 mg 10/24/18 05:38 10/24/18 05:42 Toradol IVPUSH 10/24/18 05:39 30 mg ONETIME ONE Administration Ketorolac Tromethamine Confirm 10/24/18 05:40 10/24/18 05:43 Toradol Administered 10/24/18 05:41 Not Given Dose 30 mg .ROUTE .STK-MED ONE Ondansetron HCl 4 mg 10/24/18 05:37 10/24/18 05:41 Zofran IVPUSH 10/24/18 05:38 4 mg ONETIME ONE Administration Ondansetron HCl Confirm 10/24/18 05:40 10/24/18 05:44 Zofran Administered 10/24/18 05:41 Not Given Dose 4 mg .ROUTE .STK-MED ONE Departure - Departure Time of Disposition: 07:03 Disposition: Still A Patient 30 Condition: Good Clinical Impression: Ureterolithiasis, UTI, Urinary tract infectious disease - Discharge Information Referrals: PCP,None [Primary Care Provider] - Forms: ED Department Discharge - My Orders Last 24 Hours: My Active Orders 10/24/18 06:30 EKG 12 Lead [EKG Documentation Completion] [RC] STAT 10/24/18 07:13 cefTRIAXone [Rocephin in Dextrose,Iso-Osm 1 GM/50 ML] 1 gm Premix Bag 1 bag IV ONETIME - Assessment/Plan Last 24 Hours: My Active Orders 10/24/18 06:30 EKG 12 Lead [EKG Documentation Completion] [RC] STAT 10/24/18 07:13 cefTRIAXone [Rocephin in Dextrose,Iso-Osm 1 GM/50 ML] 1 gm Premix Bag 1 bag IV ONETIME
[2018-10-24] MEDS ORDERED: cefTRIAXone 1 GM in Premix Bag 1 BAG IV ONE (07:13)
[2018-10-24] MEDS ORDERED: HYDROmorphone 1 MG/ML Syringe ONE (07:32)
--- NOTE | 2018-10-24 09:13 | PCM.PREANE ---
Preanesthetic Assessment - Anesthesia/Transfusion/Family Hx Anesthesia History: Prior Anesthesia Without Reaction Family History of Anesthesia Reaction: No Transfusion History: No Prior Transfusion(s) Intubation History: Unknown - Review of Systems General: No Symptoms Pulmonary: No Symptoms Cardiovascular: No Symptoms Gastrointestinal: Abdominal Pain Neurological: No Symptoms Other: Reports: None - Physical Assessment NPO Status Date: 10/23/18 O2 Sat by Pulse Oximetry: 100 Respiratory Rate: 18 Vital Signs: Last Vital Signs Temp 96.5 F 10/24/18 05:29 Pulse 70 10/24/18 07:43 Resp 18 10/24/18 07:43 BP 121/82 10/24/18 07:43 Pulse Ox 100 10/24/18 07:37 Height: 5 ft 4 in Weight: 84 kg ASA Class: 2 Mental Status: Alert & Oriented x3 Airway Class: Mallampati = 1 Dentition: Reports: Normal Dentition ROM/Head Extension: Full Lungs: Clear to Auscultation, Normal Respiratory Effort Cardiovascular: Regular Rate, Regular Rhythm - Lab Values: Laboratory Last Values WBC 8.22 K/uL (4.0-11.0) 10/24/18 04:25 RBC 5.10 M/uL (4.30-5.90) 10/24/18 04:25 Hgb 14.9 g/dL (12.0-16.0) 10/24/18 04:25 Hct 44.9 % (36.0-46.0) 10/24/18 04:25 MCV 88.0 fL (80.0-98.0) 10/24/18 04:25 MCH 29.2 pg (27.0-32.0) 10/24/18 04:25 MCHC 33.2 g/dL (31.0-37.0) 10/24/18 04:25 RDW Std Deviation 43.9 fl (28.0-62.0) 10/24/18 04:25 RDW Coeff of Neto 14 % (11.0-15.0) 10/24/18 04:25 Plt Count 291 K/uL (150-400) 10/24/18 04:25 MPV 11.20 fL (7.40-12.00) 10/24/18 04:25 Neut % (Auto) 49.1 % (48.0-80.0) 10/24/18 04:25 Lymph % (Auto) 38.8 % (16.0-40.0) 10/24/18 04:25 [place] % (Auto) 9.1 % (0.0-15.0) 10/24/18 04:25 Eos % (Auto) 2.8 % (0.0-7.0) 10/24/18 04:25 Baso % (Auto) 0.2 % (0.0-1.5) 10/24/18 04:25 Neut # (Auto) 4.0 K/uL (1.4-5.7) 10/24/18 04:25 Lymph # (Auto) 3.2 K/uL (0.6-2.4) H 10/24/18 04:25 [place] # (Auto) 0.8 K/uL (0.0-0.8) 10/24/18 04:25 Eos # (Auto) 0.2 K/uL (0.0-0.7) 10/24/18 04:25 Baso # (Auto) 0.0 K/uL (0.0-0.1) 10/24/18 04:25 Nucleated RBC % 0.0 /100WBC 10/24/18 04:25 Nucleated RBCs # 0 K/uL 10/24/18 04:25 Sodium 141 mmol/L (136-145) 10/24/18 04:25 Potassium 4.0 mmol/L (3.5-5.1) 10/24/18 04:25 Chloride 105 mmol/L (98-107) 10/24/18 04:25 Carbon Dioxide 25.2 mmol/L (21.0-32.0) 10/24/18 04:25 BUN 12 mg/dL (7.0-18.0) 10/24/18 04:25 Creatinine 0.8 mg/dL (0.6-1.0) 10/24/18 04:25 Est Cr Clr Drug Dosing 83.95 mL/min 10/24/18 04:25 Estimated GFR (MDRD) > 60.0 ml/min 10/24/18 04:25 Glucose 92 mg/dL (74-106) 10/24/18 04:25 Calcium 8.8 mg/dL (8.5-10.1) 10/24/18 04:25 Total Bilirubin 0.6 mg/dL (0.2-1.0) 10/24/18 04:25 AST 62 IU/L (15-37) H 10/24/18 04:25 ALT 119 IU/L (14-63) H 10/24/18 04:25 Alkaline Phosphatase 149 U/L (46-116) H 10/24/18 04:25 Total Protein 7.7 g/dL (6.4-8.2) 10/24/18 04:25 Albumin 3.8 g/dL (3.4-5.0) 10/24/18 04:25 Globulin 3.9 g/dL (2.6-4.0) 10/24/18 04:25 Albumin/Globulin Ratio 1.0 (0.9-1.6) 10/24/18 04:25 Lipase 203 U/L (73-393) 10/24/18 04:25 HCG, Qual NEGATIVE (NEG) 10/24/18 04:25 Urine Color YELLOW 10/24/18 06:10 Urine Appearance CLOUDY 10/24/18 06:10 Urine pH 6.0 (5.0-8.0) 10/24/18 06:10 Ur Specific Margie 1.025 (1.001-1.035) 10/24/18 06:10 Urine Protein NEGATIVE mg/dL (NEGATIVE) 10/24/18 06:10 Urine Glucose (UA) NEGATIVE mg/dL (NEGATIVE) 10/24/18 06:10 Urine Ketones NEGATIVE mg/dL (NEGATIVE) 10/24/18 06:10 Urine Occult Blood LARGE (NEGATIVE) H 10/24/18 06:10 Urine Nitrite NEGATIVE (NEGATIVE) 10/24/18 06:10 Urine Bilirubin NEGATIVE (NEGATIVE) 10/24/18 06:10 Urine Urobilinogen 0.2 EU/dL (<2.0) 10/24/18 06:10 Ur Leukocyte Esterase SMALL (NEGATIVE) H 10/24/18 06:10 Urine RBC 40-50 (0-2/HPF) 10/24/18 06:10 Urine WBC 4-6 (0-5/HPF) 10/24/18 06:10 Ur Epithelial Cells FEW (NONE-FEW) 10/24/18 06:10 Urine Bacteria 1+ (NEGATIVE) H 10/24/18 06:10 Urine Mucus LIGHT (NONE-MOD) 10/24/18 06:10 - Allergies Allergies/Adverse Reactions: Allergies Allergy/AdvReac Type Severity Reaction Status Date / Time Contrast dye Allergy Anaphylactic Uncoded 10/24/18 05:33 Shock - Blood Blood Available: No - Anesthesia Plan Pre-Op Medication Ordered: None - Acknowledgements Anesthesia Type Planned: General Anesthesia Pt an Appropriate Candidate for the Planned Anesthesia: Yes Alternatives and Risks of Anesthesia Discussed w Pt/Guardian: Yes Pt/Guardian Understands and Agrees with Anesthesia Plan: Yes Additional Comments: anes prob list: 4 months post , is nursing PLAN: GET PreAnesthesia Questionnaire HEENT History: Reports: Impaired Vision, Other (See Below) Other HEENT History: wears glasses Cardiovascular History: Reports: None Respiratory History: Reports: None Gastrointestinal History: Reports: Other (See Below) Other Gastrointestinal History: heartburn with Genitourinary History: Reports: None 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: , Other (See Below) Other OB/BYN History: bacterial vaginosis Musculoskeletal History: Reports: None Neurological History: Reports: Other (See Below) Other Neuro History: vaso-vagal response Psychiatric History: Reports: None Endocrine/Metabolic History: Reports: None Hematologic History: Reports: None Immunologic History: Reports: None Oncologic (Cancer) History: Reports: None Dermatologic History: Reports: None - Infectious Disease History Infectious Disease History: Reports: Chicken Pox, Human Papilloma Virus (HPV) - Past Surgical History HEENT Surgical History: Reports: Other (See Below) Other HEENT Surgeries/Procedures: laser surgery to reduce turbinates GI Surgical History: Reports: None Female Surgical History: Reports: Other (See Below) Other Female Surgeries/Procedures: cervical cryrotherapy for abnormal cells Neurological Surgical History: Reports: None Musculoskeletal Surgical History: Reports: None - SUBSTANCE USE Smoking Status *Q: Never Smoker Second Hand Smoke Exposure: No Recreational Drug Use History: No - HOME MEDS Home Medications: Home Meds PNV #116/Iron Fumarate/FA/DHA [Expecta Combo Pack] 1 tab PO DAILY 04/02 [History] - CURRENT (IN HOUSE) MEDS Current Meds: Current Medications Discontinued Medications Hydromorphone HCl (Dilaudid) 1 mg IVPUSH ONETIME ONE Stop: 10/24/18 05:44 Last Admin: 10/24/18 06:18 Dose: 1 mg Hydromorphone HCl (Dilaudid) 1 mg IVPUSH ONETIME ONE Stop: 10/24/18 07:31 Last Admin: 10/24/18 07:35 Dose: 1 mg Hydromorphone HCl (Dilaudid) Confirm Administered Dose 1 mg .ROUTE .STK-MED ONE Stop: 10/24/18 07:33 Last Admin: 10/24/18 07:37 Dose: Not Given Sodium Chloride (Normal Saline) 1,000 mls @ 999 mls/hr IV .Bolus ONE Stop: 10/24/18 06:39 Last Admin: 10/24/18 05:41 Dose: 999 mls/hr Ceftriaxone Sodium/Dextrose 1 (gm/ Premix) 50 mls @ 100 mls/hr IV ONETIME ONE Stop: 10/24/18 07:42 Last Admin: 10/24/18 07:25 Dose: 100 mls/hr Ketorolac Tromethamine (Toradol) 30 mg IVPUSH ONETIME ONE Stop: 10/24/18 05:39 Last Admin: 10/24/18 05:42 Dose: 30 mg Ketorolac Tromethamine (Toradol) Confirm Administered Dose 30 mg .ROUTE .STK- MED ONE Stop: 10/24/18 05:41 Last Admin: 10/24/18 05:43 Dose: Not Given Ondansetron HCl (Zofran) 4 mg IVPUSH ONETIME ONE Stop: 10/24/18 05:38 Last Admin: 10/24/18 05:41 Dose: 4 mg Ondansetron HCl (Zofran) Confirm Administered Dose 4 mg .ROUTE .STK-MED ONE Stop: 10/24/18 05:41 Last Admin: 10/24/18 05:44 Dose: Not Given
[2018-10-24] MEDS ORDERED: fentaNYL 100 MCG/2 ML SDV ONE (09:30)
[2018-10-24] MEDS: fentaNYL 100 MCG/2 ML SDV IVPUSH PRN ×2 (09:30→10:45)
[2018-10-24] MEDS ORDERED: Dexamethasone 4 MG/ML 5 ML MDV ONE (09:56)
[2018-10-24] MEDS ORDERED: fentaNYL 250 MCG/5 ML SDV ONE (09:56)
[2018-10-24] MEDS ORDERED: Rocuronium 100 MG/10 ML Syringe ONE (09:56)
[2018-10-24] MEDS ORDERED: Midazolam 1 MG/ML 2 ML SDV ONE (09:56)
[2018-10-24] MEDS ORDERED: Propofol 200 MG/20 ML SDV ONE (09:56)
[2018-10-24] MEDS ORDERED: Lidocaine 2% 5 ML SDV ONE (09:56)
[2018-10-24] MEDS ORDERED: Lactated Ringers 1,000 ML IV SCH (10:15)
[2018-10-24] MEDS ORDERED: Glycopyrrolate 0.2 MG/ML SDV ONE ×3 (11:30→11:53)
[2018-10-24] MEDS ORDERED: Neostigmine Methylsulfate 1 MG/ML 5 ML Syringe ONE (11:49)
--- NOTE | 2018-10-24 12:29 | OR ---
SURGEON: Arnol Lux M.D. DATE OF PROCEDURE: 10/24/2018 PREOPERATIVE DIAGNOSIS: 8.4 mm left upper ureteral stone. POSTOPERATIVE DIAGNOSIS: 8.4 mm left upper ureteral stone. OPERATION: Extracorporeal shock wave lithotripsy for a 4 mm left renal stone. DESCRIPTION OF PROCEDURE: The patient was given general anesthesia. She was on lithotripsy table, and the position of the patient was adjusted, so this ureteral stone could be treated and eventually received a total of 1500 shocks. By then, the shadow of the stone completely disappeared. We moved down to the kidney and picked the largest stone in the kidney, which was about 4 mm, within the upper pole of the left kidney, and that was treated with approximately 1000 more shocks. With that done, the procedure was terminated and the patient was moved to recovery room in good condition. LAURIE HERMOSILLO /[id number]
--- NOTE | 2018-10-24 14:47 | PCM.POSTAN ---
POST ANESTHESIA ASSESSMENT - MENTAL STATUS Mental Status: Alert, Oriented - RESPIRATORY Respiratory Status: Respiratory Rate WNL, Airway Patent, O2 Saturation Stable - CARDIOVASCULAR CV Status: Pulse Rate WNL, Blood Pressure Stable - GASTROINTESTINAL GI Status: No Symptoms - POST OP HYDRATION Hydration Status: Adequate & Stable
--- NOTE | 2018-10-24 14:47 | PCM48HPAN ---
Post Anesthesia Note - EVALUATION WITHIN 48HRS OF ANESTHETIC Vital Signs in Normal Range: Yes Patient Participated in Evaluation: Yes Respiratory Function Stable: Yes Airway Patent: Yes Cardiovascular Function Stable: Yes Hydration Status Stable: Yes Pain Control Satisfactory: Yes Nausea and Vomiting Control Satisfactory: Yes Mental Status Recovered: Yes Resp Rate: 8
[2018-10-25] MEDS ORDERED: [UNRECOGNIZED DRUG - OTHER] PO SCH (09:00)
[2018-10-25] MEDS ORDERED: DHA PO SCH (09:00)
[2018-10-25] MEDS ORDERED: PNV PO SCH (09:00)
[2018-10-25] MEDS ORDERED: IRON FUMARATE PO SCH (09:00)
== END 2018-10-24 14:20 | disposition home or self-care (01) ==
LOC: MW.ED 05:22 → MW.SDS 08:06 → MW.ED 08:18 → MW.SDS 08:25
PROVIDERS: ATTEND Urology
DX: N13.6 Pyonephrosis (principal); Z91.041 Radiographic dye allergy status; Z79.899 Other long term (current) drug therapy
CPT/HCPCS: 36415; 50590; 74176; 80053; 81001; 83690; 84703; 85025; 96361; 96365; 96375; 96376; 99285; J0696; J1100; J1170; J1885; J2001; J2250; J2405; J2704; J3010; J3490; J7040; J7120; 00873; 99284

== ENCOUNTER 2019-12-28 13:20 | Emergency (ER) | payer OTHER ==
[2019-12-28] MEDS ORDERED: Ondansetron 4 MG/2 ML SDV IVPUSH ONE (13:55)
[2019-12-28] MEDS ORDERED: Sodium Chloride 0.9% 1,000 ML IV ONE (13:55)
[2019-12-28] MEDS ORDERED: Ketorolac 30 MG/ML SDV IVPUSH ONE (13:55)
[2019-12-28 14:24] LABS: BLOOD UREA NITROGEN,BUN 11 mg/dL (7.0-18.0); CARBON DIOXIDE,CO2 27.1 mmol/L (21.0-32.0); CHLORIDE,CL 105 mmol/L (98-107); GLUCOSE RANDOM 90 mg/dL (74-106); LIPASE 172 U/L (73-393); POTASSIUM,K 3.7 mmol/L (3.5-5.1); SODIUM,NA 141 mmol/L (136-145)
--- NOTE | 2019-12-28 14:58 | EDM.PDOC ---
ED HPI GENERAL MEDICAL PROBLEM - General Chief Complaint: Gastrointestinal Problem Stated Complaint: VOMITING Time Seen by Provider: 12/28/19 13:54 Source of Information: Reports: Patient History Limitations: Reports: No Limitations - History of Present Illness INITIAL COMMENTS - FREE TEXT/NARRATIVE: HISTORY AND PHYSICAL: History of present illness: Patient is a 39-year-old female who presents to the emergency room with complaints of generalized abdominal pain, nausea, vomiting and diarrhea. She has had 3 intermittent episodes over the past 1 week which she noticed after e ating breakfast. She associates the symptoms with eating eggs which she finds unusual as she has eaten eggs without problems previous. She does have a history of ulcers, takes omeprazole daily. Patient denies any fever, chills, headache, change in vision, syncope or near syncope. Denies any chest pain, back pain, shortness of breath or cough. Denies any constipation or dysuria. Has not noted any blood in urine or stool. Patient has been eating and drinking appropriately. Review of systems: As per history of present illness and below otherwise all systems reviewed and negative. Past medical history: As per history of present illness and as reviewed below otherwise noncontributory. Surgical history: As per history of present illness and as reviewed below otherwise noncontributory. Social history: See social history for further information Family history: As per history of present illness and as reviewed below otherwise noncontributory. Physical exam: General: Well developed and well nourished 39-year-old female. Alert and orientated x 3. Nontoxic in appearance and in no acute distress. Vital signs are stable and have been reviewed by me. Nursing notes were reviewed. HEENT: Atraumatic, normocephalic, pupils equal and reactive bilaterally, negative for conjunctival pallor or scleral icterus, mucous membranes moist, trachea midline. No drooling or trismus noted. No meningeal signs. No hot potato voice noted. Lungs: Clear to auscultation, breath sounds equal bilaterally. Normal work of breathing, no accessory muscles used. Heart: S1S2, regular rate and rhythm without overt murmur Abdomen: Soft, nondistended, nontender. Negative for masses or hepatosplenomegaly. Negative for costovertebral tenderness. Skin: Intact, warm, dry. No lesions or rashes noted. Hematologic: No petechiae or purpra. Mucosa appropriate color and normal nail bed color and refill. Extremities: Atraumatic, moves all extremities per self without difficulty or deficits. Neurovascular unremarkable. Neuro: Awake, alert, oriented. Cranial nerves II through XII unremarkable. Cerebellum unremarkable. Motor and sensory unremarkable throughout. Exam nonfocal. Psychiatric: Mood and affect are appropriate. Normal thought process. Answering questions appropriately. Notes: Lab work is unremarkable. She has not had any vomiting or diarrhea while here in the emergency room. She does feel improved after fluids and medication. I have spoken with the patient/caregiver and discussed today's findings, in addition to providing specific details for plan of care. The patient is stable for discharge, counseling was provided and we discussed in great detail signs and symptoms that would prompt them to return to the Emergency Department. I did encourage her to follow-up with a general surgeon or GI specialist if symptoms continue. Medication, follow up and supportive care measures were reviewed and discussed. Voices understanding and is agreeable to plan of care. Denies any further questions or concerns at this time. Diagnostics: CBC, CMP, UA, urine , lipase Therapeutics: IV fluid, Zofran, Toradol Prescription: Zofran Impression: Gastroenteritis Plan: 1. Encourage small frequent sips of fluids to prevent dehydration. Oxford diet over the next 24-48 hours, advance as tolerated. 2. Tylenol and/or Ibuprofen as needed for pain and fever management. 3. If you should develop worsening symptoms, new symptoms develop or any of the symptoms we discussed - RETURN to the ED as we discussed. 4. Follow up with your primary care provider or the general surgeon as we discussed. Definitive disposition and diagnosis as appropriate pending reevaluation and review of above. abdomen Pain Score (Numeric/FACES): 8 - Related Data Allergies Allergy/AdvReac Type Severity Reaction Status Date / Time Contrast dye Allergy Anaphylactic Uncoded 10/24/18 09:37 Shock seasonal Allergy Sneezing Uncoded 12/28/19 13:46 Home Meds: Home Meds FLUoxetine [PROzac] 10 mg PO DAILY 12/28/19 [History] Omeprazole 0 mg PO DAILY 12/28/19 [History] Ondansetron [Zofran ODT] 4 mg PO Q6H PRN #8 tab.dis 12/28/19 [Rx] Past Medical History HEENT History: Reports: Other (See Below) Other HEENT History: wears glasses/contacts Cardiovascular History: Reports: None Respiratory History: Reports: None Gastrointestinal History: Reports: GERD, PUD Other Gastrointestinal History: heartburn with Genitourinary History: Reports: None 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 History: bacterial vaginosis Musculoskeletal History: Reports: None Neurological History: Reports: Other (See Below) Other Neuro History: some kind of "episode" after exercise- tense muscles Psychiatric History: Reports: Anxiety, Depression Endocrine/Metabolic History: Reports: Obesity/BMI 30+ Hematologic History: Reports: None Immunologic History: Reports: None Oncologic (Cancer) History: Reports: None Dermatologic History: Reports: None - Infectious Disease History Infectious Disease History: Reports: Chicken Pox, Shingles - Past Surgical History HEENT Surgical History: Reports: Naso-Sinus Surgery Other HEENT Surgeries/Procedures: Turbinate reduction GI Surgical History: Reports: None Female Surgical History: Reports: Other (See Below) Other Female Surgeries/Procedures: cervical cryrotherapy for abnormal cells Endocrine Surgical History: Reports: None Musculoskeletal Surgical History: Reports: None Social & Family History - Family History Family Medical History: Noncontributory HEENT: Reports: Impaired Vision Cardiac: Reports: None Respiratory: Reports: None GI: Reports: Pancreatitis : Reports: None OBGYN: Reports: Musculoskeletal: Reports: None Neurological: Reports: Neuropathy, Diabetic Psychiatric: Reports: None Endocrine/Metabolic: Reports: Diabetes, Type I, Diabetes, type II, Hyperthyroidism Hematologic: Reports: None Immunologic: Reports: None Dermatologic: Reports: None Oncologic: Reports: None - Tobacco Use Smoking Status *Q: Never Smoker Second Hand Smoke Exposure: No - Caffeine Use Caffeine Use: Reports: None - Recreational Drug Use Recreational Drug Use: No ED ROS GENERAL - Review of Systems Review Of Systems: Comprehensive ROS is negative, except as noted in HPI. ED EXAM, GI/ABD - Physical Exam Exam: See Below (You dictation) Course - Vital Signs Last Recorded V/S: Last Vital Signs Temp 96.8 F L 12/28/19 13:35 Pulse 72 12/28/19 13:35 Resp 18 12/28/19 13:35 BP 92/61 12/28/19 13:35 Pulse Ox 98 12/28/19 13:35 - Orders/Labs/Meds Labs: Laboratory Tests 12/28/19 12/28/19 12/28/19 Range/Units 13:43 13:43 13:55 WBC 9.25 (4.0-11.0) K/uL RBC 4.78 (4.30-5.90) M/uL Hgb 14.6 (12.0-16.0) g/dL Hct 43.1 (36.0-46.0) % MCV 90.2 (80.0-98.0) fL MCH 30.5 (27.0-32.0) pg MCHC 33.9 (31.0-37.0) g/dL RDW Std Deviation 43.1 (28.0-62.0) fl RDW Coeff of Neto 13 (11.0-15.0) % Plt Count 294 (150-400) K/uL MPV 10.70 (7.40-12.00) fL Neut % (Auto) 61.7 (48.0-80.0) % Lymph % (Auto) 26.1 (16.0-40.0) % [place]ett % (Auto) 6.9 (0.0-15.0) % Eos % (Auto) 5.0 (0.0-7.0) % Baso % (Auto) 0.3 (0.0-1.5) % Neut # (Auto) 5.7 (1.4-5.7) K/uL Lymph # (Auto) 2.4 (0.6-2.4) K/uL [place]ett # (Auto) 0.6 (0.0-0.8) K/uL Eos # (Auto) 0.5 (0.0-0.7) K/uL Baso # (Auto) 0.0 (0.0-0.1) K/uL Nucleated RBC % 0.0 /100WBC Nucleated RBCs # 0 K/uL Sodium (136-145) mmol/L Potassium (3.5-5.1) mmol/L Chloride (98-107) mmol/L Carbon Dioxide (21.0-32.0) mmol/L BUN (7.0-18.0) mg/dL Creatinine (0.6-1.0) mg/dL Est Cr Clr Drug Dosing mL/min Estimated GFR (MDRD) ml/min Glucose (74-106) mg/dL Calcium (8.5-10.1) mg/dL Total Bilirubin (0.2-1.0) mg/dL AST (15-37) IU/L ALT (14-63) IU/L Alkaline Phosphatase (46-116) U/L Total Protein (6.4-8.2) g/dL Albumin (3.4-5.0) g/dL Globulin (2.6-4.0) g/dL Albumin/Globulin Ratio (0.9-1.6) Lipase (73-393) U/L Urine Color YELLOW Urine Appearance CLEAR Urine pH 8.0 (5.0-8.0) Ur Specific [place] 1.020 (1.001-1.035) Urine Protein NEGATIVE (NEGATIVE) mg/dL Urine Glucose (UA) NEGATIVE (NEGATIVE) mg/dL Urine Ketones NEGATIVE (NEGATIVE) mg/dL Urine Occult Blood NEGATIVE (NEGATIVE) Urine Nitrite NEGATIVE (NEGATIVE) Urine Bilirubin NEGATIVE (NEGATIVE) Urine Urobilinogen 1.0 (<2.0) EU/dL Ur Leukocyte Esterase NEGATIVE (NEGATIVE) Urine HCG, Qual NEGATIVE (NEGATIVE) 12/28/19 Range/Units 13:55 WBC (4.0-11.0) K/uL RBC (4.30-5.90) M/uL Hgb (12.0-16.0) g/dL Hct (36.0-46.0) % MCV (80.0-98.0) fL MCH (27.0-32.0) pg MCHC (31.0-37.0) g/dL RDW Std Deviation (28.0-62.0) fl RDW Coeff of Neto (11.0-15.0) % Plt Count (150-400) K/uL MPV (7.40-12.00) fL Neut % (Auto) (48.0-80.0) % Lymph % (Auto) (16.0-40.0) % [place]ett % (Auto) (0.0-15.0) % Eos % (Auto) (0.0-7.0) % Baso % (Auto) (0.0-1.5) % Neut # (Auto) (1.4-5.7) K/uL Lymph # (Auto) (0.6-2.4) K/uL Pickett # (Auto) (0.0-0.8) K/uL Eos # (Auto) (0.0-0.7) K/uL Baso # (Auto) (0.0-0.1) K/uL Nucleated RBC % /100WBC Nucleated RBCs # K/uL Sodium 141 (136-145) mmol/L Potassium 3.7 (3.5-5.1) mmol/L Chloride 105 (98-107) mmol/L Carbon Dioxide 27.1 (21.0-32.0) mmol/L BUN 11 (7.0-18.0) mg/dL Creatinine 0.7 (0.6-1.0) mg/dL Est Cr Clr Drug Dosing 95.02 mL/min Estimated GFR (MDRD) > 60.0 ml/min Glucose 90 (74-106) mg/dL Calcium 8.5 (8.5-10.1) mg/dL Total Bilirubin 0.7 (0.2-1.0) mg/dL AST 33 (15-37) IU/L ALT 53 (14-63) IU/L Alkaline Phosphatase 114 (46-116) U/L Total Protein 7.2 (6.4-8.2) g/dL Albumin 3.8 (3.4-5.0) g/dL Globulin 3.4 (2.6-4.0) g/dL Albumin/Globulin Ratio 1.1 (0.9-1.6) Lipase 172 (73-393) U/L Urine Color Urine Appearance Urine pH (5.0-8.0) Ur Specific [place] (1.001-1.035) Urine Protein (NEGATIVE) mg/dL Urine Glucose (UA) (NEGATIVE) mg/dL Urine Ketones (NEGATIVE) mg/dL Urine Occult Blood (NEGATIVE) Urine Nitrite (NEGATIVE) Urine Bilirubin (NEGATIVE) Urine Urobilinogen (<2.0) EU/dL Ur Leukocyte Esterase (NEGATIVE) Urine HCG, Qual (NEGATIVE) Meds: Medications Discontinued Medications Generic Name Dose Route Start Last Admin Trade Name Freq PRN Reason Stop Dose Admin Sodium Chloride 1,000 mls @ 999 mls/hr 12/28/19 13:55 12/28/19 14:21 Normal Saline IV 12/28/19 14:55 999 mls/hr STAT ONE Administration Ketorolac Tromethamine 30 mg 12/28/19 13:55 12/28/19 14:23 Toradol IVPUSH 12/28/19 13:56 30 mg ONETIME ONE Administration Ondansetron HCl 4 mg 12/28/19 13:55 12/28/19 14:21 Zofran IVPUSH 12/28/19 13:56 4 mg ONETIME ONE Administration Departure - Departure Time of Disposition: 14:57 Disposition: Home, Self-Care 01 Clinical Impression: Gastroenteritis - Discharge Information Prescriptions: Ondansetron [Zofran ODT] 4 mg PO Q6H PRN #8 tab.dis PRN Reason: Nausea Instructions: Viral Gastroenteritis, Adult, [id number] Referrals: Aleja Monroy, DATA ENTRY PROCESSOR [Primary Care Provider] - Forms: ED Department Discharge Additional Instructions: The following information is given to patients seen in the emergency department who are being discharged to home. This information is to outline your options for follow-up care. We provide all patients seen in our emergency department with a follow-up referral. The need for follow-up, as well as the timing and circumstances, are variable depending upon the specifics of your emergency department visit. If you don't have a primary care physician on staff, we will provide you with a referral. We always advise you to contact your personal physician following an emergency department visit to inform them of the circumstance of the visit and for follow-up with them and/or the need for any referrals to a consulting specialist. The emergency department will also refer you to a specialist when appropriate. This referral assures that you have the opportunity for follow-up care with a specialist. All of these measure are taken in an effort to provide you with optimal care, which includes your follow-up. Under all circumstances we always encourage you to contact your private physician who remains a resource for coordinating your care. When calling for follow-up care, please make the office aware that this follow-up is from your recent emergency room visit. If for any reason you are refused follow-up, please contact the [facility] Emergency Department at and asked to speak to the emergency department charge nurse. [facility] [address] [place] [id number] [place] [address] Thank you for choosing the [facility] emergency department in [place] for your medical needs today. It was a pleasure caring for you. Today you were seen in the emergency department for abdominal pain, nausea, vomiting and diarrhea. 1. Encourage small frequent sips of fluids to prevent dehydration. Oxford diet over the next 24-48 hours, advance as tolerated. 2. Tylenol and/or Ibuprofen as needed for pain and fever management. 3. If you should develop worsening symptoms, new symptoms develop or any of the symptoms we discussed - RETURN to the ED as we discussed. 4. Follow up with your primary care provider or the general surgeon as we discussed. Sepsis Event Note (ED) - Evaluation Sepsis Screening Result: No Definite Risk - Focused Exam Vital Signs: Vital Signs Temp Pulse Resp BP Pulse Ox 12/28/19 13:35 96.8 F L 72 18 92/61 98
== END 2019-12-28 15:11 | disposition home or self-care (01) ==
LOC: MW.ED 13:20
DX: K52.9 Noninfective gastroenteritis and colitis, unspecified (principal); K21.9 Gastro-esophageal reflux disease without esophagitis; F32.9 Major depressive disorder, single episode, unspecified; F41.9 Anxiety disorder, unspecified; E66.9 Obesity, unspecified; Z91.041 Radiographic dye allergy status; Z68.32 Body mass index [BMI] 32.0-32.9, adult; Z79.899 Other long term (current) drug therapy
CPT/HCPCS: 36415; 80053; 81003; 81025; 83690; 85025; 96361; 96374; 96375; 99284; J1885; J2405; J7030; 99283

== ENCOUNTER 2020-02-13 09:05 | Emergency (ER) | payer MEDICAID ==
[2020-02-13] MEDS ORDERED: Sodium Chloride 0.9% 10 ML Syringe FLUSH PRN (09:23)
[2020-02-13] MEDS ORDERED: Sodium Chloride 0.9% 2.5 ML Syringe FLUSH PRN (09:23)
[2020-02-13] MEDS ORDERED: Acetaminophen 500 MG Tab PO ONE (09:55)
--- NOTE | 2020-02-13 10:33 | EDM.PDOC ---
ED HPI GENERAL MEDICAL PROBLEM - General Chief Complaint: [facility] Problem Stated Complaint: MISCARRIAGE COMPLICATIONS Time Seen by Provider: 02/13/20 09:07 Source of Information: Reports: Patient, Old Records History Limitations: Reports: No Limitations - History of Present Illness INITIAL COMMENTS - FREE TEXT/NARRATIVE: 39-year-old female with a past medical history of GERD, ureterolithiasis, hypothyroidism presenting with vaginal bleeding. . She reports positive test at home starting on February 02. 4 days ago she began having some vaginal spotting. She called her [facility] C[facility] who had her take a serum hCG which resulted at 14.0 on February 10. She began having increasing bleeding over the past 1 to 2 days and her OB directed her to come to the emergency department. She reports bright red liquid blood in the toilet. She does not know if she is passing any clots or tissue. She has not having any back or abdominal pain. No history of bleeding disorder. No fever, nausea, or vomiting. No other complaints. ROS: A 10-point review of systems was negative, except as noted in the HPI (or in the ROS section of this note). Past medical history: Reviewed, no additional pertinent history. Surgical history: Reviewed in system, no additional pertinent history. Social history: Reviewed in system, no additional pertinent history. Family history: Reviewed in system, no additional pertinent history. PHYSICAL EXAM Vital signs reviewed. Nursing notes reviewed. Constitutional: Awake, alert, non-distressed. Head: Normocephalic, atraumatic. Eyes: EOMI, conjunctiva normal, no discharge, no scleral icterus. Ears, Nose, Throat: External ears and nose normal, moist oral mucosa. Cardiovascular: 2+ radial pulse, capillary refill less than 2 seconds. Pulmonary: normal work of breathing, no accessory muscle use. Abdomen/GI: Soft, nontender, nondistended, no guarding or rigidity, no masses. : Chaperoned by VÍCTOR So. Dark liquid blood noted in the vagina. Cervix closed. Musculoskeletal: No deformities. Integumentary: Appropriate color for ethnicity, warm, dry, no pallor or jaundice, no rash. Neurologic: Alert, answering questions appropriately, normal speech, no facial droop, moving all extremities well. Psychiatric: Appropriate mood and affect, normal thought process. This patient was seen and evaluated during the 2019 SARS-CoV-2 novel coronavirus pandemic period. Community viral transmission is ongoing at time of this encounter and the emergency department is operating under pandemic response procedures. - Related Data Allergies Allergy/AdvReac Type Severity Reaction Status Date / Time Contrast dye Allergy Anaphylactic Uncoded 02/13/20 09:14 Shock seasonal Allergy Sneezing Uncoded 02/13/20 09:14 Home Meds: Home Meds FLUoxetine [PROzac] 10 mg PO DAILY 12/28/19 [History] Omeprazole 40 mg PO DAILY 12/28/19 [History] Ondansetron [Zofran ODT] 4 mg PO Q6H PRN #8 tab.dis 12/28/19 [Rx] Past Medical History HEENT History: Reports: Other (See Below) Other HEENT History: wears glasses/contacts Cardiovascular History: Reports: None Respiratory History: Reports: None Gastrointestinal History: Reports: GERD, PUD Other Gastrointestinal History: heartburn with Genitourinary History: Reports: None [facility] History: Reports: Other [facility] C[facility] History: bacterial vaginosis Musculoskeletal History: Reports: None Neurological History: Reports: Other (See Below) Other Neuro History: some kind of "episode" after exercise- tense muscles Psychiatric History: Reports: Anxiety, Depression Endocrine/Metabolic History: Reports: Obesity/BMI 30+ Hematologic History: Reports: None Immunologic History: Reports: None Oncologic (Cancer) History: Reports: None Dermatologic History: Reports: None - Infectious Disease History Infectious Disease History: Reports: Chicken Pox, Shingles - Past Surgical History HEENT Surgical History: Reports: Naso-Sinus Surgery Other HEENT Surgeries/Procedures: Turbinate reduction GI Surgical History: Reports: None Female Surgical History: Reports: Other (See Below) Other Female Surgeries/Procedures: cervical cryrotherapy for abnormal cells Endocrine Surgical History: Reports: None Neurological Surgical History: Reports: None Musculoskeletal Surgical History: Reports: None Social & Family History - Family History Family Medical History: No Pertinent Family History HEENT: Reports: Impaired Vision Cardiac: Reports: None Respiratory: Reports: None GI: Reports: Pancreatitis : Reports: None OBGYN: Reports: Musculoskeletal: Reports: None Neurological: Reports: Neuropathy, Diabetic Psychiatric: Reports: None Endocrine/Metabolic: Reports: Diabetes, Type I, Diabetes, type II, Hyperthyroidism Hematologic: Reports: None Immunologic: Reports: None Dermatologic: Reports: None Oncologic: Reports: None - Tobacco Use Tobacco Use Status *Q: Never Tobacco User - Caffeine Use Caffeine Use: Reports: None - Recreational Drug Use Recreational Drug Use: No ED ROS GENERAL - Review of Systems Review Of Systems: See Below ED EXAM - Physical Exam Exam: See Below Course - Vital Signs Text/Narrative:: Patient hemodynamically stable, afebrile, well-appearing, looks nontoxic. Differential diagnosis includes but is not limited to: Threatened , incomplete , medical , complete , ectopic , coagulopathy, etc. 11:56 AM: INR normal. Beta hCG is now 5.0, down from 14. Blood type is O+ so does not need RhoGAM. Awaiting nurse executive community planning for pelvic exam. CBC shows normal cell lines. Electrolytes and renal function are within normal limits. Vitally stable. Transvaginal pelvic ultrasound shows mildly heterogenous endometrium but no IUP, no adnexal mass or free fluid. No obvious evidence of an ectopic although this could be a very early IUP or first trimester nonviable . 12:05 PM: Pelvic exam was chaperoned by nurse. Showed liquid blood but closed cervical os. Suspect that she has had a complete at this point. I did discuss the case with the on-call RIBBON CUTTER Dr. Winter who agrees with plan for discharge and outpatient follow-up with the [facility] clinic in 1 week for reevaluation. We discussed return precautions including increasing bleeding, lightheadedness, loss of consciousness, or severe abdominal or back pain or fever. Plan: Patient is stable to discharge home with outpatient [facility] clinic follow- up. Strict emergency department return precautions were provided, patient indicated understanding. All questions were answered prior to departure. Discharged in good condition. Last Recorded V/S: Last Vital Signs Temp 36.6 C 02/13/20 09:15 Pulse 66 02/13/20 09:15 Resp 17 02/13/20 09:15 BP 110/88 02/13/20 09:15 Pulse Ox 98 02/13/20 09:15 - Orders/Labs/Meds Orders: Active Orders 24 hr Category Date Time Status Pelvic Exam, Set Up [RC] ASDIRECTED Care 02/13/20 09:24 Active Nothing Per Oral Diet [DIET] Diet 02/13/20 Breakfast Active Sodium Chloride 0.9% [Saline Flush] Med 02/13/20 09:23 Active 10 ml FLUSH ASDIRECTED PRN Sodium Chloride 0.9% [Saline Flush] Med 02/13/20 09:23 Active 2.5 ml FLUSH ASDIRECTED PRN Saline Lock Insert [OM.PC] Stat Oth 02/13/20 09:24 Ordered Medication Orders Sodium Chloride (Saline Flush) 10 ml FLUSH ASDIRECTED PRN PRN Reason: Keep Vein Open Last Admin: 02/13/20 10:13 Dose: 10 ml Documented by: CURRY Sodium Chloride (Saline Flush) 2.5 ml FLUSH ASDIRECTED PRN PRN Reason: Keep Vein Open Last Admin: 02/13/20 10:13 Dose: 2.5 ml Documented by: CURRY Labs: Laboratory Tests 02/13/20 02/13/20 02/13/20 Range/Units 10:14 10:14 10:14 WBC 6.11 (4.0-11.0) K/uL RBC 4.71 (4.30-5.90) M/uL Hgb 14.5 (12.0-16.0) g/dL Hct 43.4 (36.0-46.0) % MCV 92.1 (80.0-98.0) fL MCH 30.8 (27.0-32.0) pg MCHC 33.4 (31.0-37.0) g/dL RDW Std Deviation 44.3 (28.0-62.0) fl RDW Coeff of Neto 13 (11.0-15.0) % Plt Count 235 (150-400) K/uL MPV 10.80 (7.40-12.00) fL Neut % (Auto) 57.2 (48.0-80.0) % Lymph % (Auto) 31.6 (16.0-40.0) % [place] % (Auto) 7.7 (0.0-15.0) % Eos % (Auto) 3.3 (0.0-7.0) % Baso % (Auto) 0.2 (0.0-1.5) % Neut # (Auto) 3.5 (1.4-5.7) K/uL Lymph # (Auto) 1.9 (0.6-2.4) K/uL [place] # (Auto) 0.5 (0.0-0.8) K/uL Eos # (Auto) 0.2 (0.0-0.7) K/uL Baso # (Auto) 0.0 (0.0-0.1) K/uL Nucleated RBC % 0.0 /100WBC Nucleated RBCs # 0 K/uL INR 1.05 Sodium 141 (136-145) mmol/L Potassium 4.1 (3.5-5.1) mmol/L Chloride 106 (98-107) mmol/L Carbon Dioxide 26.1 (21.0-32.0) mmol/L BUN 8 (7.0-18.0) mg/dL Creatinine 0.6 (0.6-1.0) mg/dL Est Cr Clr Drug Dosing 110.86 mL/min Estimated GFR (MDRD) > 60.0 ml/min Glucose 78 (74-106) mg/dL Calcium 8.8 (8.5-10.1) mg/dL HCG, Quant mIU/mL Blood Type 02/13/20 02/13/20 Range/Units 10:14 10:14 WBC (4.0-11.0) K/uL RBC (4.30-5.90) M/uL Hgb (12.0-16.0) g/dL Hct (36.0-46.0) % MCV (80.0-98.0) fL MCH (27.0-32.0) pg MCHC (31.0-37.0) g/dL RDW Std Deviation (28.0-62.0) fl RDW Coeff of Neto (11.0-15.0) % Plt Count (150-400) K/uL MPV (7.40-12.00) fL Neut % (Auto) (48.0-80.0) % Lymph % (Auto) (16.0-40.0) % [place] % (Auto) (0.0-15.0) % Eos % (Auto) (0.0-7.0) % Baso % (Auto) (0.0-1.5) % Neut # (Auto) (1.4-5.7) K/uL Lymph # (Auto) (0.6-2.4) K/uL [place] # (Auto) (0.0-0.8) K/uL Eos # (Auto) (0.0-0.7) K/uL Baso # (Auto) (0.0-0.1) K/uL Nucleated RBC % /100WBC Nucleated RBCs # K/uL INR Sodium (136-145) mmol/L Potassium (3.5-5.1) mmol/L Chloride (98-107) mmol/L Carbon Dioxide (21.0-32.0) mmol/L BUN (7.0-18.0) mg/dL Creatinine (0.6-1.0) mg/dL Est Cr Clr Drug Dosing mL/min Estimated GFR (MDRD) ml/min Glucose (74-106) mg/dL Calcium (8.5-10.1) mg/dL HCG, Quant 5.0 mIU/mL Blood Type O POSITIVE Meds: Medications Generic Name Dose Route Start Last Admin Trade Name Freq PRN Reason Stop Dose Admin Sodium Chloride 10 ml 02/13/20 09:23 02/13/20 10:13 Saline Flush FLUSH 10 ml ASDIRECTED PRN Administration Keep Vein Open Sodium Chloride 2.5 ml 02/13/20 09:23 02/13/20 10:13 Saline Flush FLUSH 2.5 ml ASDIRECTED PRN Administration Keep Vein Open Discontinued Medications Generic Name Dose Route Start Last Admin Trade Name Freq PRN Reason Stop Dose Admin Acetaminophen 1,000 mg 02/13/20 09:55 02/13/20 10:13 Tylenol Extra Strength PO 02/13/20 09:56 1,000 mg ONETIME ONE Administration Departure - Departure Time of Disposition: 12:17 Disposition: Home, Self-Care 01 Condition: Good Clinical Impression: Complete - Discharge Information *PRESCRIPTION DRUG MONITORING PROGRAM REVIEWED*: Not Applicable *COPY OF PRESCRIPTION DRUG MONITORING REPORT IN PATIENT JORGE L: Not Applicable Instructions: Miscarriage, Managing Loss Referrals: Emy Ramírez MD [Physician] - 1 Week (For follow-up of miscarriage.) Forms: ED Department Discharge Additional Instructions: You were seen in the emergency department for vaginal bleeding and suspected miscarriage. Based on your examination, blood work, and ultrasound, I believe that you have nearly completed a miscarriage. The amount of bleeding is not dangerous and we will let you go home this afternoon. I would like for you to follow-up with Dr. Ramírez's clinic in the next week for reevaluation. Warning signs to come back to the ER include: Increased bleeding, lightheadedness, loss of consciousness, severe lower abdominal or back pain, or fever, or any other new or concerning symptoms. Please return the emergency department immediately if your symptoms worsen or if you feel worse. Thank you for choosing the [facility] emergency department in [place] for your medical needs today. It was a pleasure caring for you. The following information is given to patients seen in the emergency department who are being discharged. This information is to outline your options for follow-up care. We provide all patients seen in our emergency department with a follow-up referral. The need for follow-up, as well as the timing and circumstances, are variable depending upon the specifics of your emergency department visit. If you don't have a primary care physician on staff, we will provide you with a referral. We always advise you to contact your personal physician following an emergency department visit to inform them of the circumstance of the visit and for follow-up with them and/or the need for any referrals to a consulting specialist. The emergency department will also refer you to a specialist when appropriate. This referral assures that you have the opportunity for follow-up care with a specialist. All of these measure are taken in an effort to provide you with optimal care, which includes your follow-up. Under all circumstances we always encourage you to contact your private physician who remains a resource for coordinating your care. When calling for follow-up care, please make the office aware that this follow-up is from your recent emergency room visit. If for any reason you are refused follow-up, please contact the [facility] Emergency Department at and asked to speak to the emergency department charge nurse. If you do not have a primary care physician that is caring for you, you can contact these clinics below to set up an appointment to establish care: Jenisegopal [facility] [address] [place] [address] [facility] [address] [place] [address] Sepsis Event Note (ED) - Evaluation Sepsis Screening Result: No Definite Risk - Focused Exam Vital Signs: Vital Signs Temp Pulse Resp BP Pulse Ox 02/13/20 09:15 36.6 C 66 17 110/88 98 - My Orders Last 24 Hours: My Active Orders 02/13/20 Breakfast Nothing Per Oral Diet [DIET] 02/13/20 09:23 Sodium Chloride 0.9% [Saline Flush] 10 ml FLUSH ASDIRECTED PRN Sodium Chloride 0.9% [Saline Flush] 2.5 ml FLUSH ASDIRECTED PRN 02/13/20 09:24 Pelvic Exam, Set Up [RC] ASDIRECTED Saline Lock Insert [OM.PC] Stat - Assessment/Plan Last 24 Hours: My Active Orders 02/13/20 Breakfast Nothing Per Oral Diet [DIET] 02/13/20 09:23 Sodium Chloride 0.9% [Saline Flush] 10 ml FLUSH ASDIRECTED PRN Sodium Chloride 0.9% [Saline Flush] 2.5 ml FLUSH ASDIRECTED PRN 02/13/20 09:24 Pelvic Exam, Set Up [RC] ASDIRECTED Saline Lock Insert [OM.PC] Stat
[2020-02-13 10:48] LABS: BLOOD UREA NITROGEN,BUN 8 mg/dL (7.0-18.0); CARBON DIOXIDE,CO2 26.1 mmol/L (21.0-32.0); CHLORIDE,CL 106 mmol/L (98-107); GLUCOSE RANDOM 78 mg/dL (74-106); POTASSIUM,K 4.1 mmol/L (3.5-5.1); SODIUM,NA 141 mmol/L (136-145)
--- NOTE | 2020-02-13 10:48 | US ---
Indication: Vaginal bleeding. HCG positive Technique: Sonography was performed. The examination was performed transvaginally. Comparison: None Findings: Uterus is normal in size and configuration. Myometrium appears normal. The endometrium measures about 8 millimeters and is slightly heterogeneous. However, there is no finding of IUP. No fluid collection, yolk sac or pole. The ovaries are normal in size and appearance containing normal appearing follicles. No adnexal mass. No ovarian mass. No free fluid in the cul-de-sac. Impression: 1. Mildly heterogeneous endometrium but no findings an IUP. No adnexal mass or free fluid. This could represent a very early IUP or a first-trimester nonviable . Ectopic cannot be excluded but there is no direct finding of an ectopic on this exam. 2. Follow-up evaluation recommended as warranted by clinical scenario and hCGs Dictated by Woodrow Lomeli MD @ Feb 13 2020 10:42AM Signed by Dr. Woodrow Lomeli @ Feb 13 2020 10:46AM
== END 2020-02-13 12:49 | disposition home or self-care (01) ==
LOC: MW.ED 09:05
DX: O03.9 Complete or unspecified spontaneous abortion without complication (principal); K21.9 Gastro-esophageal reflux disease without esophagitis; F41.9 Anxiety disorder, unspecified; F32.9 Major depressive disorder, single episode, unspecified; E66.9 Obesity, unspecified; Z68.30 Body mass index [BMI] 30.0-30.9, adult; Z91.041 Radiographic dye allergy status; Z91.048 Other nonmedicinal substance allergy status; Z79.899 Other long term (current) drug therapy
CPT/HCPCS: 36415; 76817; 80048; 84702; 85025; 85610; 86900; 86901; 99284; A9270; 99283